=== PATIENT | female | born 1950 | race Caucasian/White ===

== ENCOUNTER 2018-03-17 15:35 | Emergency (ER) | payer OTHER ==
[~2018-03-17] VITALS: Ht 154.9 cm; Wt 78.0 kg
[2018-03-17 15:36] VITALS: BP 159/60
[2018-03-17] MEDS ORDERED: KETOROLAC TROMETH 60MG/2ML VIAL IM ONE (16:30)
== END 2018-03-17 17:06 | disposition home or self-care (01) ==
LOC: ER 15:35
DX: S40.011A Contusion of right shoulder, initial encounter (principal); I10 Essential (primary) hypertension; Z88.2 Allergy status to sulfonamides; W18.30XA Fall on same level, unspecified, initial encounter; Y93.89 Activity, other specified; Y99.8 Other external cause status; Y92.89 Other specified places as the place of occurrence of the external cause
CPT/HCPCS: 73030; 73060; 96372; 99284; J1885

== ENCOUNTER 2018-04-11 10:05 | Emergency (ER) | payer OTHER ==
[~2018-04-11] VITALS: Ht 154.9 cm; Wt 79.4 kg
[2018-04-11 10:13] VITALS: BP 127/54
[2018-04-11] MEDS ORDERED: DEXAMETHASONE SOD PHOS 10MG/1ML VIAL INJ IM ONE (12:45)
[2018-04-11] MEDS ORDERED: KETOROLAC TROMETH 60MG/2ML VIAL IM ONE (12:45)
== END 2018-04-11 13:27 | disposition home or self-care (01) ==
LOC: ER 10:05
DX: S49.91XA Unspecified injury of right shoulder and upper arm, initial encounter (principal); Z88.2 Allergy status to sulfonamides; W19.XXXA Unspecified fall, initial encounter; Y93.89 Activity, other specified; Y92.89 Other specified places as the place of occurrence of the external cause; Y99.8 Other external cause status
CPT/HCPCS: 73030; 73060; 73090; 73130; 96372; 99284; J1100; J1885

== ENCOUNTER 2019-06-03 11:55 | Emergency (ER) | payer OTHER ==
[~2019-06-03] VITALS: Ht 152.4 cm; Wt 77.1 kg
[~2019-06-03 11:55] MED LIST: AMLO10TA13 PO; ASPI-498; ATEN50TA; CITA-73; LEVO175T31; LISI-646; METF-370; MULTTAB99 PO
[2019-06-03] MEDS ORDERED: SODIUM CHLORIDE 0.9% 1,000 ML IV ONE (12:25)
[2019-06-03] MEDS ORDERED: KETOROLAC TROMETH 30 MG/ML 1ML VIAL IV ONE (12:30)
[2019-06-03] MEDS ORDERED: PROMETHAZINE HCL 25 MG/ML 1ML IV PRN (12:30)
[2019-06-03 12:35] LABS: Basophils # (auto) 0 uL; Basophils % (auto) 0.6 % (0.0-2.0); Eosinophils # (auto) 0.4 uL; Eosinophils % (auto) 4.2 % (0.0-7.0); Hematocrit 40.1 % (36.0-46.0); Hemoglobin 13.7 g/dL (12.2-16.2); Lymphocytes # (auto) 3.2 uL; Lymphocytes % (auto) 38.8 % (10.0-50.0); Mean Corpuscular Hemoglobin 29.2 pg (28.0-32.0); Mean Corpuscular Hgb Conc. 34.1 g/dL (32.0-36.0); Mean Corpuscular Volume 85.6 fL (80.0-100.0); Monocytes # (auto) 0.6 uL; Monocytes % (auto) 6.8 % (0.0-12.0); Neutrophils # (auto) 4.1 uL; Neutrophils % (auto) 49.6 % (37.0-80.0); Nucleated Red Blood Cells % 0.1 %; Platelet Count (auto) 351 10^3/uL (140-450); Red Blood Cells 4.69 10^6/uL (4.0-5.20); Red Cell Distribution Width 13.4 % (11.8-14.3); White Blood Cell 8.4 10^3/uL (4.4-10.8)
[2019-06-03 12:47] LABS: Urine Bacteria NONE SEEN /hpf (None Seen); Urine Blood Negative /uL (Negative); Urine Specific Gravity 1.014 (1.001-1.035); Urine WBC 2 /hpf (0 - 5)
[2019-06-03 12:48] VITALS: BP 137/43
[2019-06-03 12:48] LABS: Calcium 9.1 mg/dL (8.5-10.1); Potassium 4.6 mmol/L (3.5-5.1)
[2019-06-03 12:55] LABS: Albumin 3.8 g/dL (3.4-5.0); BUN/Creatinine Ratio 18.7; Bilirubin, Total 0.6 mg/dL (0.2-1.0); Total Protein 7.4 g/dL (6.4-8.2)
== END 2019-06-03 15:30 | disposition home or self-care (01) ==
LOC: ER 12:09
DX: N39.0 Urinary tract infection, site not specified (principal); K44.9 Diaphragmatic hernia without obstruction or gangrene; K42.9 Umbilical hernia without obstruction or gangrene; E05.90 Thyrotoxicosis, unspecified without thyrotoxic crisis or storm; E78.5 Hyperlipidemia, unspecified; I10 Essential (primary) hypertension; Z98.51 Tubal ligation status; Z86.73 Personal history of transient ischemic attack (TIA), and cerebral infarction without residual deficits; Z88.2 Allergy status to sulfonamides
CPT/HCPCS: 36415; 71046; 74176; 80053; 81001; 83690; 83735; 84443; 85025; 93005; 96374; 96375; 99284; J1885; J2550; J7030

== ENCOUNTER → 2019-11-09 | Emergency (ER) | payer OTHER ==
[~2019-11-09] VITALS: Ht 152.4 cm; Wt 79.4 kg
[~2019-11-09] MED LIST changes: -AMLO10TA13 PO; -ASPI-498; -ATEN50TA; +ATEN50TA PO; -CITA-73; +CITA-73 PO; +HYDR-531 PO; +LEVO150T10 PO; -LEVO175T31; -LISI-646; +LISI-646 PO; -METF-370; +OMEP20TA PO
[2019-11-09 14:19] VITALS: BP 146/54
[2019-11-09 14:32] LABS: Urine Bacteria NONE SEEN /hpf (None Seen); Urine Blood Negative /uL (Negative); Urine Specific Gravity 1.014 (1.001-1.035); Urine WBC <1 /hpf (0 - 5)
== END | disposition home or self-care (01) ==
LOC: ER 14:10
DX: M54.16 Radiculopathy, lumbar region (principal); R51 Headache; I10 Essential (primary) hypertension; E11.9 Type 2 diabetes mellitus without complications; E78.5 Hyperlipidemia, unspecified; K21.9 Gastro-esophageal reflux disease without esophagitis; Z86.73 Personal history of transient ischemic attack (TIA), and cerebral infarction without residual deficits; Z79.899 Other long term (current) drug therapy; Z88.2 Allergy status to sulfonamides
CPT/HCPCS: 81001

== ENCOUNTER 2020-05-05 09:12 | Emergency (ER) | payer OTHER ==
[~2020-05-05] VITALS: Ht 154.9 cm; Wt 83.5 kg
[2020-05-05 12:52] VITALS: BP 172/66
== END 2020-05-05 14:27 | disposition home or self-care (01) ==
LOC: ER 09:12
DX: U07.1 COVID-19 (principal); J18.9 Pneumonia, unspecified organism
CPT/HCPCS: 36415; 71045; 87426

== ENCOUNTER 2020-05-14 15:50 | Emergency (ER) | payer OTHER ==
[~2020-05-14] VITALS: Ht 165.1 cm; Wt 81.6 kg
[2020-05-14 16:08] VITALS: BP 146/79
[2020-05-14] MEDS ORDERED: DOXYCYCLINE 100MG/250ML 250 ML IV ONE (16:30)
== END 2020-05-14 16:49 | disposition home or self-care (01) ==
LOC: EDUNIT# 15:50 → EDBD 15:50 → ER 15:52
DX: U07.1 COVID-19 (principal); J12.89 Other viral pneumonia; E11.9 Type 2 diabetes mellitus without complications; K21.9 Gastro-esophageal reflux disease without esophagitis; E78.5 Hyperlipidemia, unspecified; I10 Essential (primary) hypertension; Z98.51 Tubal ligation status; Z86.73 Personal history of transient ischemic attack (TIA), and cerebral infarction without residual deficits

== ENCOUNTER 2020-05-18 11:36 | Inpatient (IN) | payer OTHER ==
[~2020-05-18] VITALS: Ht 165.1 cm; Wt 83.1 kg
[2020-05-18] MEDS ORDERED: SODIUM CHLORIDE 0.9% 1,000 ML IVB ONE (12:30)
[2020-05-18 14:26] LABS: Basophils # (auto) 0.1 10 ^3/uL (0-0.2); Basophils % (auto) 0.3 % (0.0-2.0); Eosinophils # (auto) 0.4 10 ^3/uL (0-0.8); Eosinophils % (auto) 1.8 % (0.0-7.0); Hematocrit 42.5 % (36.0-46.0); Hemoglobin 14.2 g/dL (12.2-16.2); Lymphocytes # (auto) 2.1 10 ^3/uL (0.4-5.4); Lymphocytes % (auto) 10.5 % (10.0-50.0); Mean Corpuscular Hemoglobin 29.3 pg (28.0-32.0); Mean Corpuscular Hgb Conc. 33.4 g/dL (32.0-36.0); Mean Corpuscular Volume 87.5 fL (80.0-100.0); Monocytes # (auto) 1.5 10 ^3/uL (0-1.3); Monocytes % (auto) 7.3 % (0.0-12.0); Neutrophils # (auto) 16.3 10 ^3/uL (1.6-8.6); Neutrophils % (auto) 80.1 % (37.0-80.0); Nucleated Red Blood Cells % 0.1 %; Platelet Count (auto) 376 10^3/uL (140-450); Red Blood Cells 4.85 10^6/uL (4.0-5.20); Red Cell Distribution Width 13.7 % (11.8-14.3); White Blood Cell 20.4 10^3/uL (4.4-10.8)
[2020-05-18 14:42] LABS: INR 0.95 (0.9-1.15); Partial Thromboplastin Time 21.9 sec (23.0-31.2)
[2020-05-18] MEDS ORDERED: ZINC SULFATE 220mg CAP or TAB PO ONE (14:45)
[2020-05-18] MEDS ORDERED: ASCORBIC ACID 500 MG TAB PO ONE (14:45)
[2020-05-18] MEDS ORDERED: AZITHROMYCIN 500MG/ 250ML 250 ML IV ONE (14:45)
[2020-05-18] MEDS ORDERED: DexAMETHasone 4 MG TAB PO ONE (14:45)
[2020-05-18 14:54] LABS: Albumin 2.7 g/dL (3.4-5.0); Anion Gap 5 (5-15); Blood Urea Nitrogen 17 mg/dL (7-18); Calcium 8.8 mg/dL (8.5-10.1); Carbon Dioxide 29 mmol/L (21-32); Chloride 101 mmol/L (98-107); Glucose 116 mg/dL (74-106); Magnesium 2.4 mg/dL (1.6-2.6); Potassium 4.4 mmol/L (3.5-5.1); Sodium 135 mmol/L (136-145)
[2020-05-18 15:09] LABS: Alanine Aminotransferase 25 U/L (13-56); Alkaline Phosphatase 107 U/L (45-117); Aspartate Aminotransferase 21 U/L (15-37); BUN/Creatinine Ratio 25.4; Bilirubin, Total 0.8 mg/dL (0.2-1.0); GFR African American 113 mL/min; GFR Non-African American 93 mL/min; Total Protein 6.9 g/dL (6.4-8.2)
[2020-05-18] MEDS ORDERED: MORPHINE SULF INJ 2 MG/ML SYRINGE 1ML IV PRN ×3 (18:15→19:15)
[2020-05-18] MEDS ORDERED: NITROGLYCERIN 0.4 MG SL TAB SL PRN ×2 (18:15→19:15)
[2020-05-18] MEDS ORDERED: DOCUSATE SOD 100 MG CAP PO PRN (19:15)
[2020-05-18] MEDS ORDERED: ACETAMINOPHEN 500 MG TAB PO PRN (19:15)
[2020-05-18] MEDS ORDERED: ENOXAPARIN SOD 100 MG/1 ML SYRINGE SC ONE (19:15)
[2020-05-18] MEDS ORDERED: LORazepam 0.5 MG TAB PO PRN (19:15)
[2020-05-18] MEDS ORDERED: ALUM & MAG HYDROX-SIMETH LIQ(MAALOX) 30 ML PO PRN (19:15)
[2020-05-18] MEDS ORDERED: VANCOMYCIN PER PHARMACY 0 MG IV SCH (19:15)
[2020-05-18] MEDS ORDERED: REMDESIVIR PER PHARMACY IV SCH (19:15)
[2020-05-18] MEDS ORDERED: ONDANSETRON HCL 4 MG/2 ML VIAL IV PRN (19:15)
[2020-05-18] MEDS ORDERED: ALBUTEROL SULF HFA 90MCG INH 200DOSE IN SCH (22:00)
[2020-05-18] MEDS: BUDESONIDE (INHALATION) 180 MCG IH IN SCH (22:00)
[2020-05-18] MEDS ORDERED: PIPERACILLIN-TAZOB 3.375GM 100 ML IV ONE (22:00)
[2020-05-18 23:51] LABS: Basophils # (auto) 0 10 ^3/uL (0-0.2); Basophils % (auto) 0.3 % (0.0-2.0); Eosinophils # (auto) 0.3 10 ^3/uL (0-0.8); Eosinophils % (auto) 2.1 % (0.0-7.0); Hematocrit 40.8 % (36.0-46.0); Hemoglobin 13.4 g/dL (12.2-16.2); Lymphocytes # (auto) 2.1 10 ^3/uL (0.4-5.4); Lymphocytes % (auto) 16.7 % (10.0-50.0); Monocytes # (auto) 1.1 10 ^3/uL (0-1.3); Monocytes % (auto) 8.9 % (0.0-12.0); Neutrophils # (auto) 9.2 10 ^3/uL (1.6-8.6); Platelet Count (auto) 343 10^3/uL (140-450); Red Blood Cells 4.63 10^6/uL (4.0-5.20); Red Cell Distribution Width 13.6 % (11.8-14.3); White Blood Cell 12.8 10^3/uL (4.4-10.8)
[2020-05-19 00:20] LABS: Albumin 2.6 g/dL (3.4-5.0); Calcium 8.8 mg/dL (8.5-10.1); Magnesium 2.1 mg/dL (1.6-2.6); Potassium 4.5 mmol/L (3.5-5.1)
[2020-05-19 00:23] LABS: BUN/Creatinine Ratio 24.1
[2020-05-19 00:25] LABS: Bilirubin, Total 0.8 mg/dL (0.2-1.0); Total Protein 6.7 g/dL (6.4-8.2)
[2020-05-19] MEDS: FAMOTIDINE (10MG/ML) 2ML VL IV SCH ×2 (00:52→23:09)
[2020-05-19] MEDS: ATORVASTATIN 20 MG TAB PO SCH ×2 (00:52→23:10)
[2020-05-19] MEDS: ENOXAPARIN SOD 100 MG/1 ML SYRINGE SC SCH ×3 (00:52→23:10)
[2020-05-19] MEDS: HYDROcodone-ACET 5/325MG TAB PO PRN ×4 (01:10→23:11)
[2020-05-19 01:24] LABS: CRP High Sensitivity 5.1 mg/dL (< 0.3)
[2020-05-19 01:37] LABS: Cholesterol 213 mg/dL (< 200); HDL Cholesterol 39 mg/dL (40-59); LDL Cholesterol 161 mg/dL (< 100); Triglycerides 171 mg/dL (< 150)
[2020-05-19] MEDS: VANCOMYCIN 1GM/250ML 250 ML IV SCH ×2 (02:09→18:30)
[2020-05-19 02:19] VITALS: BP 134/69
--- NOTE | 2020-05-19 03:54 | NUR ---
RN NOT AVAILABLE, UNABLE TO CLARIFY IF PT WAS SWABBED FOR COVID. NOTIFIED .S YESY
[2020-05-19 05:00] VITALS: BP 123/60
[2020-05-19] MEDS: LEVOTHYROXINE SODIUM 50 MCG TAB PO SCH (06:02)
[2020-05-19] MEDS: FUROSEMIDE 20 MG/2 ML VIAL IV SCH ×2 (06:04→18:30)
[2020-05-19 06:09] LABS: Basophils # (auto) 0 10 ^3/uL (0-0.2); Basophils % (auto) 0.1 % (0.0-2.0); Eosinophils # (auto) 0 10 ^3/uL (0-0.8); Eosinophils % (auto) 0.3 % (0.0-7.0); Hematocrit 38.9 % (36.0-46.0); Hemoglobin 13.1 g/dL (12.2-16.2); Lymphocytes # (auto) 1.2 10 ^3/uL (0.4-5.4); Lymphocytes % (auto) 11.3 % (10.0-50.0); Mean Corpuscular Hemoglobin 29.6 pg (28.0-32.0); Mean Corpuscular Hgb Conc. 33.7 g/dL (32.0-36.0); Mean Corpuscular Volume 87.8 fL (80.0-100.0); Monocytes # (auto) 0.2 10 ^3/uL (0-1.3); Monocytes % (auto) 2.3 % (0.0-12.0); Platelet Count (auto) 323 10^3/uL (140-450); Red Blood Cells 4.43 10^6/uL (4.0-5.20); Red Cell Distribution Width 13.5 % (11.8-14.3); White Blood Cell 10.5 10^3/uL (4.4-10.8)
[2020-05-19 06:14] LABS: Potassium 4.4 mmol/L (3.5-5.1)
[2020-05-19 06:23] LABS: Albumin 2.5 g/dL (3.4-5.0); BUN/Creatinine Ratio 17.3; Bilirubin, Total 0.7 mg/dL (0.2-1.0); Calcium 8.7 mg/dL (8.5-10.1); Total Protein 6.3 g/dL (6.4-8.2)
--- NOTE | 2020-05-19 07:30 | NUR ---
Opening Shift Note Assumed care of patient, who is alert and oriented x4. Respirations are even and unlabored. No S/S of distress/SOB or pain. On 5L O2 nc. Bed is low, locked with 2x side rails up. Call light is within reach. Instructed on POC and to call for assist PRN, will continue to monitor for changes Q1hr and PRN.
[2020-05-19] MEDS: ASCORBIC ACID 1,000 MG TAB PO SCH (09:49)
[2020-05-19] MEDS: DexAMETHasone SOD PHOS 10MG/1ML VIAL INJ IV SCH (09:49)
[2020-05-19] MEDS: CITALOPRAM HYDROBR 20 MG TAB PO SCH (09:50)
[2020-05-19] MEDS: METOPROLOL SUCCINATE XL 50 MG TAB PO SCH (09:50)
[2020-05-19] MEDS: LISINOPRIL 5 MG TAB PO SCH (09:50)
[2020-05-19] MEDS: CHOLECALCIFEROL (VITD3) 2,000 UNIT CAP PO SCH (09:51)
[2020-05-19] MEDS: ZINC SULFATE 220mg CAP or TAB PO SCH (09:51)
[2020-05-19] MEDS: BUDESONIDE (INHALATION) 180 MCG IH IN SCH ×2 (10:00→22:00)
--- NOTE | 2020-05-19 10:03 | NUR ---
Urine sample Collected and sent to lab for ordered UA/culture and UDS.
[2020-05-19 10:05] LABS: Urine WBC None Seen /hpf (0 - 5)
[2020-05-19 10:21] LABS: Urine Bacteria NONE SEEN /hpf (None Seen); Urine Blood Negative /uL (Negative); Urine Specific Gravity 1.008 (1.001-1.035)
[2020-05-19 10:33] LABS: Alcohol, Urine < 3.0 mg/dL (0-10); Amphetamine Screen, Urine NEGATIVE (NEGATIVE); Barbiturate Scree,Urine NEGATIVE (NEGATIVE); Benzodiazephine Screen, Urine NEGATIVE (NEGATIVE); Cannabinoid Screen, Urine NEGATIVE (NEGATIVE); Cocaine Screen, Urine NEGATIVE (NEGATIVE); Opiate Scree,Urine NEGATIVE (NEGATIVE); Phencyclidine Screen, Urine NEGATIVE (NEGATIVE)
[2020-05-19 12:45] VITALS: BP 143/77
[2020-05-19 16:56] VITALS: BP 129/58
[2020-05-19] MEDS ORDERED: REMDESIVIR 200 MG in NS 210ml LOADING DOSE ADULT IV ONE (17:00)
--- NOTE | 2020-05-19 17:20 | NUR ---
FLU A/B Sent to lab by this RN.
--- NOTE | 2020-05-19 18:20 | NUR ---
Remdesivir Pre: T: 97.8 HR:93bpm, RR:20bpm, O2:94% T: 97.7 HR:74bpm, RR:16, O2:92% Post: T:98.0 HR:84bpm, RR:12bpm, O2:91%
[2020-05-19] MEDS: ACETAMINOPHEN 325 MG TAB PO PRN (18:31)
--- NOTE | 2020-05-19 19:00 | NUR ---
Opening Shift Note Assumed care of patient, awake and alert. No S/S of distress/SOB or pain. Patient on 5L O2 via NC. Safety measures in place bed in lowest position, side rails up x2, and call light within reach. Instructed on POC and to call for assist PRN, will continue to monitor for changes Q1hr and PRN.
[2020-05-19 22:00] VITALS: BP_SYST 118; BP_SYST 136; BP_DIAS 67; BP_DIAS 70
[2020-05-20] VITALS (8 sets, daily range): BP systolic 128–140; BP diastolic 50–80
[2020-05-20] MEDS: PIPERACILLIN-TAZOB 3.375GM 100 ML IV SCH ×4 (04:13→23:06)
[2020-05-20] MEDS: LEVOTHYROXINE SODIUM 50 MCG TAB PO SCH (06:36)
[2020-05-20] MEDS: FUROSEMIDE 20 MG/2 ML VIAL IV SCH ×2 (06:36→18:20)
[2020-05-20] MEDS: BUDESONIDE (INHALATION) 180 MCG IH IN SCH ×2 (07:00→22:56)
[2020-05-20] MEDS: ALBUTEROL SULF HFA 90MCG INH 200DOSE IN PRN (07:00)
[2020-05-20] MEDS: ZINC SULFATE 220mg CAP or TAB PO SCH (10:00)
[2020-05-20] MEDS: VANCOMYCIN 1GM/250ML 250 ML IV SCH (11:15)
[2020-05-20] MEDS: DexAMETHasone SOD PHOS 10MG/1ML VIAL INJ IV SCH (11:26)
[2020-05-20] MEDS: ENOXAPARIN SOD 100 MG/1 ML SYRINGE SC SCH ×2 (11:28→23:07)
[2020-05-20] MEDS: CITALOPRAM HYDROBR 20 MG TAB PO SCH (11:29)
[2020-05-20] MEDS: ASCORBIC ACID 1,000 MG TAB PO SCH (11:29)
[2020-05-20] MEDS: METOPROLOL SUCCINATE XL 50 MG TAB PO SCH (11:30)
[2020-05-20] MEDS: CHOLECALCIFEROL (VITD3) 2,000 UNIT CAP PO SCH (11:31)
[2020-05-20] MEDS: LISINOPRIL 5 MG TAB PO SCH (11:31)
[2020-05-20] MEDS: HYDROcodone-ACET 5/325MG TAB PO PRN ×2 (17:18→23:25)
[2020-05-20] MEDS: REMDESIVIR 100 MG in SODIUM CHL 0.9% 250 ML IV SCH (17:24)
--- NOTE | 2020-05-20 17:30 | NUR ---
Started Remdesivir per MD order at this time. Patient tolerating well at this time. Will continue to monitor.
--- NOTE | 2020-05-20 18:34 | NUR ---
REMDESIVIR COMPLETED W/O ADVERSE REACTION. VS REMAIN STABLE
--- NOTE | 2020-05-20 20:55 | NUR ---
Opening Shift Note Assumed care of patient, awake and alert. No S/S of distress/SOB or pain. Patient safety measures in place bed in lowest position, side rails up x2, and call light within reach. Instructed on POC and to call for assist PRN, will continue to monitor for changes Q1hr and PRN.
--- NOTE | 2020-05-20 20:57 | NUR ---
Patient's family dropped off snacks and herbal night time tea for the patient. Verified with pharmacy that the herbal teas would not interact with any medications. Pharmacy states the tea can be given.
[2020-05-20] MEDS: FAMOTIDINE (10MG/ML) 2ML VL IV SCH (23:06)
[2020-05-20] MEDS: ATORVASTATIN 20 MG TAB PO SCH (23:07)
[2020-05-21] MEDS: ALBUTEROL SULF HFA 90MCG INH 200DOSE IN PRN ×3 (01:14→20:23)
[2020-05-21] MEDS: VANCOMYCIN 1GM/250ML 250 ML IV SCH ×2 (03:08→16:26)
[2020-05-21] MEDS: PIPERACILLIN-TAZOB 3.375GM 100 ML IV SCH ×4 (04:33→23:57)
[2020-05-21 05:18] VITALS: BP 152/72
[2020-05-21] MEDS: FUROSEMIDE 20 MG/2 ML VIAL IV SCH ×2 (05:51→18:00)
[2020-05-21] MEDS: LEVOTHYROXINE SODIUM 50 MCG TAB PO SCH (06:15)
[2020-05-21] MEDS: BUDESONIDE (INHALATION) 180 MCG IH IN SCH ×2 (07:02→20:23)
[2020-05-21 08:00] VITALS: BP 135/64
[2020-05-21] MEDS ORDERED: LINEZOLID 600 MG/300 ML IV ONE (10:52)
[2020-05-21] MEDS: HYDROcodone-ACET 5/325MG TAB PO PRN ×2 (10:55→21:06)
[2020-05-21] MEDS: CITALOPRAM HYDROBR 20 MG TAB PO SCH (10:55)
[2020-05-21] MEDS: ASCORBIC ACID 1,000 MG TAB PO SCH (10:55)
[2020-05-21] MEDS: ZINC SULFATE 220mg CAP or TAB PO SCH (10:55)
[2020-05-21] MEDS: METOPROLOL SUCCINATE XL 50 MG TAB PO SCH (10:56)
[2020-05-21] MEDS: LISINOPRIL 5 MG TAB PO SCH (10:57)
[2020-05-21] MEDS: CHOLECALCIFEROL (VITD3) 2,000 UNIT CAP PO SCH (10:59)
[2020-05-21] MEDS: ENOXAPARIN SOD 100 MG/1 ML SYRINGE SC SCH ×2 (11:09→22:55)
[2020-05-21] MEDS: DexAMETHasone SOD PHOS 10MG/1ML VIAL INJ IV SCH (11:12)
[2020-05-21 12:00] VITALS: BP 154/71
--- NOTE | 2020-05-21 19:10 | NUR ---
Opening Shift Note Assumed care of patient, awake and alert. No S/S of distress/SOB or pain. Patient safety measures in place side rails up x2, bed in lowest position, and call light within reach. Instructed on POC and to call for assist PRN, will continue to monitor for changes Q1hr and PRN.
--- NOTE | 2020-05-21 19:45 | NUR ---
Spoke to pharmacy to adjust patient's medication administration. Will continue to monitor.
[2020-05-21] MEDS: REMDESIVIR 100 MG in SODIUM CHL 0.9% 250 ML IV SCH (21:33)
--- NOTE | 2020-05-21 21:33 | NUR ---
Patient's Remdesivir adminstration delayed by dayshift RN. Adminstration started 2129. Patient's BP 110/78, HR 86, O2 92%, Temp 97.7, RR 17. Will reassess at 2144. Will continue to monitor every hour and as needed.
--- NOTE | 2020-05-21 21:45 | NUR ---
Vitals reassessed T 98.5, BP 133/72, HR 90, O2 91%, RR. 17. Will continue to monitor every hour and as needed.
[2020-05-21 22:00] VITALS: BP 110/78
[2020-05-21] MEDS: FAMOTIDINE (10MG/ML) 2ML VL IV SCH (22:54)
--- NOTE | 2020-05-21 23:12 | NUR ---
Remdesivir administration complete ending vitals T 98.3, O2 93%, HR 73, RR 17, BP 133/65. Patient denies pain or distress. Patient tolerated administration well. Will continue to monitor every hour and as needed.
[2020-05-21] MEDS: ATORVASTATIN 20 MG TAB PO SCH (23:15)
[2020-05-22] MEDS: VANCOMYCIN 1GM/250ML 250 ML IV SCH ×2 (03:00→15:50)
[2020-05-22 05:00] VITALS: BP 159/71
[2020-05-22 05:55] LABS: Basophils # (auto) 0 10 ^3/uL (0-0.2); Basophils % (auto) 0.2 % (0.0-2.0); Eosinophils # (auto) 0 10 ^3/uL (0-0.8); Hematocrit 34.9 % (36.0-46.0); Hemoglobin 11.8 g/dL (12.2-16.2); Lymphocytes # (auto) 2.1 10 ^3/uL (0.4-5.4); Lymphocytes % (auto) 20.1 % (10.0-50.0); Mean Corpuscular Hemoglobin 29.5 pg (28.0-32.0); Mean Corpuscular Hgb Conc. 33.9 g/dL (32.0-36.0); Mean Corpuscular Volume 87.1 fL (80.0-100.0); Monocytes % (auto) 9.6 % (0.0-12.0); Neutrophils # (auto) 7.2 10 ^3/uL (1.6-8.6); Neutrophils % (auto) 70.1 % (37.0-80.0); Platelet Count (auto) 340 10^3/uL (140-450); Red Blood Cells 4.01 10^6/uL (4.0-5.20); Red Cell Distribution Width 13.5 % (11.8-14.3); White Blood Cell 10.3 10^3/uL (4.4-10.8)
[2020-05-22] MEDS: PIPERACILLIN-TAZOB 3.375GM 100 ML IV SCH ×4 (06:09→23:38)
[2020-05-22] MEDS: FUROSEMIDE 20 MG/2 ML VIAL IV SCH ×2 (06:09→15:50)
[2020-05-22 06:16] LABS: Potassium 4.2 mmol/L (3.5-5.1)
[2020-05-22] MEDS: LEVOTHYROXINE SODIUM 50 MCG TAB PO SCH (06:16)
[2020-05-22 06:23] LABS: Albumin 2.4 g/dL (3.4-5.0); BUN/Creatinine Ratio 23.5; Bilirubin, Total 0.4 mg/dL (0.2-1.0); Calcium 8.7 mg/dL (8.5-10.1); Total Protein 5.6 g/dL (6.4-8.2)
[2020-05-22] MEDS: BUDESONIDE (INHALATION) 180 MCG IH IN SCH ×2 (07:20→19:58)
[2020-05-22 09:00] VITALS: BP 146/71
[2020-05-22] MEDS: DexAMETHasone SOD PHOS 10MG/1ML VIAL INJ IV SCH (10:00)
[2020-05-22] MEDS: CITALOPRAM HYDROBR 20 MG TAB PO SCH (10:46)
[2020-05-22] MEDS: METOPROLOL SUCCINATE XL 50 MG TAB PO SCH (10:47)
[2020-05-22] MEDS: CHOLECALCIFEROL (VITD3) 2,000 UNIT CAP PO SCH (10:48)
[2020-05-22] MEDS: ASCORBIC ACID 1,000 MG TAB PO SCH (10:48)
[2020-05-22] MEDS: LISINOPRIL 5 MG TAB PO SCH (10:49)
[2020-05-22] MEDS: ENOXAPARIN SOD 100 MG/1 ML SYRINGE SC SCH ×2 (10:49→21:32)
[2020-05-22] MEDS: ZINC SULFATE 220mg CAP or TAB PO SCH (10:50)
--- NOTE | 2020-05-22 12:20 | NUR ---
Nutrition Assessment Notes please see attached link for complete assessment Est energy needs ABW 70 [id number] kcal (23-25 kcal/kgABW), Est protein needs: 70-77 g (1.0-1.1g/kgABW). Will monitor and reassess prn. Addendum: 05/22/20 at [address] Amended: Links added.
[2020-05-22 13:00] VITALS: BP 152/72
--- NOTE | 2020-05-22 13:45 | NUR ---
NOTIFIED PHARMACY TO SEND [facility] UNIT IS OUT.
[2020-05-22] MEDS: HYDROcodone-ACET 5/325MG TAB PO PRN ×2 (15:55→22:26)
[2020-05-22 17:00] VITALS: BP 132/62
[2020-05-22] MEDS: REMDESIVIR 100 MG in SODIUM CHL 0.9% 250 ML IV SCH (17:15)
--- NOTE | 2020-05-22 17:15 | NUR ---
REMDESIVIR START VITALS BP141/58 P 63 RR 18 T 98.7 97%
--- NOTE | 2020-05-22 17:30 | NUR ---
REMDESIVIR VITALS 15 MINUTES INTO INFUSION BP 136/60 P 88 RR16 T97.6 97% 5L OXYMIZER
--- NOTE | 2020-05-22 18:15 | NUR ---
POST INFUSION VITALS BP 136/60 P 77 RR18 T97.6 92 % ROOM AIR
[2020-05-22] MEDS: ALBUTEROL SULF HFA 90MCG INH 200DOSE IN PRN (19:59)
[2020-05-22] MEDS: ATORVASTATIN 20 MG TAB PO SCH (21:31)
[2020-05-22] MEDS: FAMOTIDINE (10MG/ML) 2ML VL IV SCH (21:31)
[2020-05-22 22:00] VITALS: BP 120/65
[2020-05-23] MEDS: ACETAMINOPHEN 325 MG TAB PO PRN (00:11)
[2020-05-23] MEDS: VANCOMYCIN 1GM/250ML 250 ML IV SCH ×2 (03:17→18:53)
[2020-05-23 05:00] VITALS: BP 116/61
[2020-05-23] MEDS: PIPERACILLIN-TAZOB 3.375GM 100 ML IV SCH ×4 (05:26→23:44)
[2020-05-23] MEDS: HYDROcodone-ACET 5/325MG TAB PO PRN ×4 (05:29→21:06)
[2020-05-23] MEDS: LEVOTHYROXINE SODIUM 50 MCG TAB PO SCH (06:44)
[2020-05-23] MEDS: FUROSEMIDE 20 MG/2 ML VIAL IV SCH ×2 (06:45→18:54)
[2020-05-23 07:39] LABS: Albumin 2.6 g/dL (3.4-5.0); Calcium 8.5 mg/dL (8.5-10.1); Potassium 3.2 mmol/L (3.5-5.1)
[2020-05-23 07:44] LABS: BUN/Creatinine Ratio 23.4; Bilirubin, Total 0.4 mg/dL (0.2-1.0); Total Protein 6.1 g/dL (6.4-8.2)
[2020-05-23] MEDS: BUDESONIDE (INHALATION) 180 MCG IH IN SCH ×2 (07:46→19:25)
[2020-05-23 08:00] VITALS: BP 118/64
--- NOTE | 2020-05-23 08:00 | NUR ---
Opening Shift Note Assumed care of patient, awake and alert. oxygen saturation 94% on 4 liters nasal cannula.No S/S of distress/SOB or pain. Patient safety measures in place side rails up x2, bed in lowest position, and call light within reach. Instructed on POC and to call for assist PRN, will continue to monitor for changes Q1hr and PRN.
[2020-05-23] MEDS: DexAMETHasone SOD PHOS 10MG/1ML VIAL INJ IV SCH (09:37)
[2020-05-23] MEDS: CITALOPRAM HYDROBR 20 MG TAB PO SCH (09:38)
[2020-05-23] MEDS: ZINC SULFATE 220mg CAP or TAB PO SCH (09:38)
[2020-05-23] MEDS: METOPROLOL SUCCINATE XL 50 MG TAB PO SCH (09:40)
[2020-05-23] MEDS: ASCORBIC ACID 1,000 MG TAB PO SCH (09:40)
[2020-05-23] MEDS: CHOLECALCIFEROL (VITD3) 2,000 UNIT CAP PO SCH (09:41)
[2020-05-23] MEDS: LISINOPRIL 5 MG TAB PO SCH (09:42)
[2020-05-23] MEDS: ENOXAPARIN SOD 100 MG/1 ML SYRINGE SC SCH ×2 (09:42→21:05)
[2020-05-23 12:00] VITALS: BP 122/61
--- NOTE | 2020-05-23 12:30 | NUR ---
O2 SATURATION MAINTAINED AT 93% ON 3L NASAL CANNULA.WILL CONTIUE TO MONITOR.
--- NOTE | 2020-05-23 14:00 | NUR ---
paged dr bryan for dr jerad sandy regarding transfer of service.
--- NOTE | 2020-05-23 14:56 | NUR ---
TRANSFERRED SERVICE TO DR Yocasta SEN.
[2020-05-23 17:00] VITALS: BP 105/68
[2020-05-23] MEDS ORDERED: DOXY-332 PO (17:55)
[2020-05-23] MEDS ORDERED: ALBUAER3 IN (17:55)
[2020-05-23] MEDS ORDERED: DEXA6TAB6 PO (17:55)
[2020-05-23] MEDS ORDERED: IPRIH IN (17:55)
[2020-05-23] MEDS: REMDESIVIR 100 MG in SODIUM CHL 0.9% 250 ML IV SCH (18:45)
--- NOTE | 2020-05-23 19:01 | NUR ---
endorsed care to night rn. patient will go home tomorrow 05/24/20. per pulmonary md patient will go home tomorrow.
--- NOTE | 2020-05-23 19:20 | NUR ---
Opening note Assumed care of patient, patient is alert and orientated x4. No sob or distress noted. Patient is resting in bed. Bed is locked in lowest position, side rails up x2. POC reviewed, all questions answered at this time. Will continue to monitor q1hr and PRN.
[2020-05-23] MEDS: ALBUTEROL SULF HFA 90MCG INH 200DOSE IN PRN (19:25)
[2020-05-23] MEDS: FAMOTIDINE (10MG/ML) 2ML VL IV SCH (21:05)
[2020-05-23] MEDS: ATORVASTATIN 20 MG TAB PO SCH (21:05)
[2020-05-23 22:00] VITALS: BP 102/46
[2020-05-24] MEDS: VANCOMYCIN 1GM/250ML 250 ML IV SCH (03:12)
[2020-05-24 05:41] VITALS: BP_SYST 72
[2020-05-24] MEDS: FUROSEMIDE 20 MG/2 ML VIAL IV SCH (06:13)
[2020-05-24] MEDS: LEVOTHYROXINE SODIUM 50 MCG TAB PO SCH (06:13)
[2020-05-24] MEDS: PIPERACILLIN-TAZOB 3.375GM 100 ML IV SCH (06:13)
[2020-05-24] MEDS: HYDROcodone-ACET 5/325MG TAB PO PRN (06:14)
[2020-05-24] MEDS: BUDESONIDE (INHALATION) 180 MCG IH IN SCH (07:11)
[2020-05-24] MEDS: ALBUTEROL SULF HFA 90MCG INH 200DOSE IN PRN (07:11)
--- NOTE | 2020-05-24 07:17 | NUR ---
Closing note Endorsed care to day shift RN, no sob or distress noted.
--- NOTE | 2020-05-24 08:00 | NUR ---
ASSUMED CARE OF PATIENT PATIENT SCHEDULED TO DISCHARGE HOME TODAY. PULMONARY MD CLEARED PATIENT FOR DISCHARGE.
--- NOTE | 2020-05-24 08:30 | NUR ---
ITCHING SCALP PATIENT STATED "MY SCALP IS ITCHING". UPON ASSESSMENT PATIENT DOES HAVE TINY HOWEVER VISULA INSECTS CRAWLING THROUGHOUT HAIR LINE; DENIED PAIN OR ITCHING. MD PAGED FOR NEW ORDERS.
--- NOTE | 2020-05-24 09:00 | NUR ---
MD RETURNED CALL. NO NEW ORDERS. MD RECOMMENDED TO PATIENT TO PURCHASE OTC COUNTER HEAD LICE TREATMENT AND FOLLOW UP WITH PRIMARY MD.
[2020-05-24 09:27] VITALS: BP 136/71
[2020-05-24] MEDS: ASCORBIC ACID 1,000 MG TAB PO SCH (10:00)
[2020-05-24] MEDS: ZINC SULFATE 220mg CAP or TAB PO SCH (10:00)
[2020-05-24] MEDS: CITALOPRAM HYDROBR 20 MG TAB PO SCH (10:00)
[2020-05-24] MEDS: CHOLECALCIFEROL (VITD3) 2,000 UNIT CAP PO SCH (10:00)
[2020-05-24] MEDS: DexAMETHasone SOD PHOS 10MG/1ML VIAL INJ IV SCH (10:00)
[2020-05-24] MEDS: ENOXAPARIN SOD 100 MG/1 ML SYRINGE SC SCH (10:00)
[2020-05-24] MEDS: METOPROLOL SUCCINATE XL 50 MG TAB PO SCH (10:00)
[2020-05-24] MEDS: LISINOPRIL 5 MG TAB PO SCH (10:00)
--- NOTE | 2020-05-24 11:15 | NUR ---
Discharge instructions given as ordered. Encourage to follow up with PMD as instructed. All questions and concerns addressed. Patient verbalized understanding. IV removed with catheter intact, pressure dressing applied Telemetry unit returned to ICU. Patient taken to vehicle via wheelchair with all personal belongings, accompanied by staff and family member. No distress noted at time of departure.
== END 2020-05-24 11:00 | disposition home or self-care (01) | DRG 177 ==
LOC: EDBD 11:36 → ER 11:36 → OVERFLOW 18:09 → TELE-EAST 05-19 01:55
PROVIDERS: ADMIT Hospitalist; ATTEND Hospitalist
PROC: XW033E5 Introduction of Remdesivir Anti-infective into Peripheral Vein, Percutaneous Approach, New Technology Group 5 (ICD-10-PCS; principal; 2020-05-19)
DX: U07.1 COVID-19 (principal); J12.89 Other viral pneumonia; J96.21 Acute and chronic respiratory failure with hypoxia; E43 Unspecified severe protein-calorie malnutrition; E87.1 Hypo-osmolality and hyponatremia; E78.5 Hyperlipidemia, unspecified; I10 Essential (primary) hypertension; E03.9 Hypothyroidism, unspecified; E66.9 Obesity, unspecified; F03.90 Unspecified dementia, unspecified severity, without behavioral disturbance, psychotic disturbance, mood disturbance, and anxiety; K21.9 Gastro-esophageal reflux disease without esophagitis; B85.2 Pediculosis, unspecified; E11.9 Type 2 diabetes mellitus without complications; F32.9 Major depressive disorder, single episode, unspecified; F41.9 Anxiety disorder, unspecified; Z79.899 Other long term (current) drug therapy; Z68.30 Body mass index [BMI] 30.0-30.9, adult; Z88.2 Allergy status to sulfonamides; Z83.3 Family history of diabetes mellitus; Z82.49 Family history of ischemic heart disease and other diseases of the circulatory system
CPT/HCPCS: 36415; 36600; 71045; 80053; 80061; 80202; 80307; 81001; 82728; 82805; 83036; 83605; 83615; 83735; 84443; 84484; 85025; 85379; 85610; 85730; 86141; 87040; 87086; 87426; 87804; 93005; 94640; G0378; J1100; J2405; J2543; J3490

== ENCOUNTER 2020-09-27 18:20 | Emergency (ER) | payer OTHER ==
[~2020-09-27] VITALS: Ht 154.9 cm; Wt 81.2 kg
[~2020-09-27 18:20] MED LIST changes: +ALBUAER3 IN; +DEXA6TAB6 PO; +DOXY-332 PO; +IPRIH IN
[2020-09-27] MEDS ORDERED: MORPHINE SULF INJ 2 MG/ML SYRINGE 1ML IV PRN (19:30)
[2020-09-27 20:26] LABS: Basophils # (auto) 0.1 10 ^3/uL (0-0.2); Basophils % (auto) 0.8 % (0.0-2.0); Eosinophils # (auto) 0.8 10 ^3/uL (0-0.8); Eosinophils % (auto) 8.4 % (0.0-7.0); Hematocrit 36.4 % (36.0-46.0); Hemoglobin 12.2 g/dL (12.2-16.2); Lymphocytes # (auto) 3.6 10 ^3/uL (0.4-5.4); Mean Corpuscular Hemoglobin 29.1 pg (28.0-32.0); Mean Corpuscular Hgb Conc. 33.5 g/dL (32.0-36.0); Mean Corpuscular Volume 86.6 fL (80.0-100.0); Monocytes # (auto) 0.8 10 ^3/uL (0-1.3); Monocytes % (auto) 8.1 % (0.0-12.0); Neutrophils # (auto) 4.4 10 ^3/uL (1.6-8.6); Neutrophils % (auto) 45.7 % (37.0-80.0); Platelet Count (auto) 367 10^3/uL (140-450); Red Cell Distribution Width 13.2 % (11.8-14.3); White Blood Cell 9.6 10^3/uL (4.4-10.8)
[2020-09-27 20:40] LABS: Albumin 3.8 g/dL (3.4-5.0); Calcium 9.4 mg/dL (8.5-10.1); Potassium 4.3 mmol/L (3.5-5.1)
[2020-09-27 20:45] LABS: BUN/Creatinine Ratio 15.3; Bilirubin, Total 0.4 mg/dL (0.2-1.0); Total Protein 7.1 g/dL (6.4-8.2)
[2020-09-27 23:45] LABS: Urine Bacteria FEW /hpf (None Seen); Urine Blood Negative /uL (Negative); Urine Hyaline Cast FEW /lpf (0 - 2); Urine Specific Gravity 1.009 (1.001-1.035); Urine WBC 3 /hpf (0 - 5)
[2020-09-27] MEDS ORDERED: ONDANSETRON HCL 4 MG/2 ML VIAL IV ONE (23:45)
[2020-09-28] MEDS ORDERED: IOHEXOL 350 MG/ML 100ML IJ ONE (03:18)
[2020-09-28] MEDS ORDERED: HYDROcodone-ACET 5/325MG TAB PO ONE (03:45)
[2020-09-28 06:00] VITALS: BP 117/58
== END 2020-09-28 06:49 | disposition home or self-care (01) ==
LOC: ER 18:20
DX: K44.9 Diaphragmatic hernia without obstruction or gangrene (principal); R10.11 Right upper quadrant pain; F41.9 Anxiety disorder, unspecified; E11.9 Type 2 diabetes mellitus without complications; K21.9 Gastro-esophageal reflux disease without esophagitis; E78.5 Hyperlipidemia, unspecified; I10 Essential (primary) hypertension; Z98.51 Tubal ligation status; Z79.899 Other long term (current) drug therapy; Z88.2 Allergy status to sulfonamides
CPT/HCPCS: 36415; 71260; 74176; 74177; 76705; 80053; 81001; 83605; 83690; 85025; 93005; 96374; 96375; 99285; J2270; J2405; Q9967; 96361

== ENCOUNTER 2023-06-01 10:02 | Emergency (ER) | payer OTHER ==
[~2023-06-01] VITALS: Ht 154.9 cm; Wt 84.0 kg
[~2023-06-01 10:02] MED LIST changes: -DOXY-332 PO; +DOXY-448 PO; -LISI-646 PO; +LISI20TA56 PO
[2023-06-01 11:42] VITALS: BP 149/64; PULSE 82; RESP 18; TEMP 98.8; O2SAT 98
[2023-06-01] MEDS ORDERED: BENZ200C64 PO (12:16)
[2023-06-01] MEDS ORDERED: AZIT500T66 PO (12:16)
[2023-06-01] MEDS ORDERED: cefTRIAXone SOD 1,000 MG VL IM ONE (12:30)
== END 2023-06-01 12:34 | disposition home or self-care (01) ==
LOC: ER 10:02
DX: J20.9 Acute bronchitis, unspecified (principal); H66.92 Otitis media, unspecified, left ear; I10 Essential (primary) hypertension; E11.9 Type 2 diabetes mellitus without complications; K21.9 Gastro-esophageal reflux disease without esophagitis; E78.5 Hyperlipidemia, unspecified; F41.9 Anxiety disorder, unspecified; Z98.890 Other specified postprocedural states
CPT/HCPCS: 71046; 96372; 99283; J0696

== ENCOUNTER 2023-08-14 12:09 | Emergency (ER) | payer BC, OTHER ==
[~2023-08-14] VITALS: Ht 154.9 cm; Wt 84.9 kg
[~2023-08-14 12:09] MED LIST changes: +AZIT500T66 PO; +BENZ200C64 PO
[2023-08-14 13:25] LABS: Basophils # (auto) 0.1 10 ^3/uL (0-0.2); Basophils % (auto) 0.7 % (0.0-2.0); Eosinophils # (auto) 0.2 10 ^3/uL (0-0.8); Eosinophils % (auto) 3.2 % (0.0-7.0); Hematocrit 36.9 % (36.0-46.0); Hemoglobin 12.4 g/dL (12.2-16.2); Lymphocytes # (auto) 2.2 10 ^3/uL (0.4-5.4); Lymphocytes % (auto) 28.1 % (10.0-50.0); Mean Corpuscular Hemoglobin 29.7 pg (28.0-32.0); Mean Corpuscular Hgb Conc. 33.6 g/dL (32.0-36.0); Mean Corpuscular Volume 88.5 fL (80.0-100.0); Monocytes # (auto) 0.6 10 ^3/uL (0-1.3); Monocytes % (auto) 7.5 % (0.0-12.0); Neutrophils # (auto) 4.7 10 ^3/uL (1.6-8.6); Neutrophils % (auto) 60.5 % (37.0-80.0); Red Blood Cells 4.18 10^6/uL (4.0-5.20); Red Cell Distribution Width 14.2 % (11.8-14.3); White Blood Cell 7.7 10^3/uL (4.4-10.8)
[2023-08-14 13:42] LABS: Alanine Aminotransferase 28 U/L (7-40); Albumin 4.5 g/dL (3.2-4.8); Alkaline Phosphatase 98 U/L (46-116); Anion Gap 5 (5-15); Aspartate Aminotransferase 22 U/L (13-40); BUN/Creatinine Ratio 23.7 (10.0-20.0); Bilirubin, Direct 0.3 mg/dL (<0.3); Blood Urea Nitrogen 22 mg/dL (9-23); Calcium 10.2 mg/dL (8.5-10.1); Carbon Dioxide 30 mmol/L (20-30); Chloride 104 mmol/L (98-107); Glucose 98 mg/dL (74-106); Potassium 4.4 mmol/L (3.5-5.1); Sodium 139 mmol/L (136-145)
[2023-08-14 13:43] LABS: Bilirubin, Total 0.7 mg/dL (0.2-1.0); Total Protein 6.3 g/dL (5.7-8.2)
[2023-08-14 14:36] VITALS: BP 144/61; PULSE 69; RESP 16; TEMP 97.6; O2SAT 96
== END 2023-08-14 14:38 | disposition home or self-care (01) ==
LOC: ER 12:09
DX: R60.0 Localized edema (principal); I10 Essential (primary) hypertension; E11.9 Type 2 diabetes mellitus without complications; K21.9 Gastro-esophageal reflux disease without esophagitis; F41.9 Anxiety disorder, unspecified; E78.5 Hyperlipidemia, unspecified; Z98.890 Other specified postprocedural states; Z88.8 Allergy status to other drugs, medicaments and biological substances; Z79.899 Other long term (current) drug therapy
CPT/HCPCS: 36415; 71045; 80048; 80076; 83880; 84484; 85025; 93970

== ENCOUNTER 2024-01-13 15:08 | Emergency (ER) | payer BC ==
[~2024-01-13] VITALS: Ht 152.4 cm; Wt 86.2 kg
[2024-01-13 16:03] LABS: Urine WBC None Seen /hpf (0 - 5)
[2024-01-13 16:23] LABS: Urine Bacteria FEW /hpf (None Seen); Urine Blood Negative /uL (Negative); Urine Clarity Clear (Clear); Urine Color Light-Yellow (Yellow); Urine Protein, UAD Negative (Negative); Urine Specific Gravity 1.006 (1.001-1.035); Urine Urobilinogen Normal (Negative); Urine pH 5.5 (5.0-9.0)
[2024-01-13] MEDS ORDERED: TRAM50TA2 PO (19:19)
[2024-01-13 20:28] VITALS: BP 193/80; PULSE 69; RESP 19; TEMP 97.9; O2SAT 96
== END 2024-01-13 20:29 | disposition home or self-care (01) ==
LOC: ER 15:08
DX: M54.16 Radiculopathy, lumbar region (principal); I10 Essential (primary) hypertension; E78.5 Hyperlipidemia, unspecified; K21.9 Gastro-esophageal reflux disease without esophagitis; E11.9 Type 2 diabetes mellitus without complications; F41.9 Anxiety disorder, unspecified; Z98.890 Other specified postprocedural states; Z88.2 Allergy status to sulfonamides; Z79.899 Other long term (current) drug therapy
CPT/HCPCS: 74176; 81001

== ENCOUNTER 2024-10-01 11:27 | Inpatient (IN) | payer BC, MEDICAID ==
[~2024-10-01] VITALS: Ht 152.4 cm; Wt 73.4 kg
[~2024-10-01 11:27] MED LIST changes: +ASPI-543 PO; -ATEN50TA PO; +ATOR20TA50 PO; -AZIT500T66 PO; -BENZ200C64 PO; -DEXA6TAB6 PO; +DOCU-94 PO; -DOXY-448 PO; -HYDR-531 PO; +LABE200T33 PO; +LEVO175T4 PO; -LISI20TA56 PO; +LOSA-535 PO; -MULTTAB99 PO; -OMEP20TA PO; +POLY335015 PO
--- NOTE | 2024-10-01 12:40 | DVH ---
EXAM: XY CHEST PORTABLE Indication: sob Technique: Single frontal view of the chest was obtained Comparison: XY CHEST PORTABLE on DOS: 06/06/24, XY CHEST XRAY 1 VIEW on DOS: 08/14/23, CHEST PORTABLE on DOS: 05/22/20, CHEST PORTABLE on DOS: 05/19/20, CHEST PORTABLE on DOS: 05/18/20 FINDINGS: Lines and Tubes: None Lungs: No focal consolidation. Pleura: No effusion. No pneumothorax. Cardiomediastinal contours: Unremarkable Bones: No acute osseous abnormality. IMPRESSION: No acute cardiopulmonary disease.
[2024-10-01 13:32] LABS: Basophils # (auto) 0 10 ^3/uL (0-0.2); Basophils % (auto) 0.6 % (0.0-2.0); Eosinophils # (auto) 0.1 10 ^3/uL (0-0.8); Eosinophils % (auto) 1.7 % (0.0-7.0); Hematocrit 37.8 % (36.0-46.0); Hemoglobin 12.9 g/dL (12.2-16.2); Lymphocytes # (auto) 1.1 10 ^3/uL (0.4-5.4); Lymphocytes % (auto) 18.2 % (10.0-50.0); Mean Corpuscular Hemoglobin 30.1 pg (28.0-32.0); Mean Corpuscular Hgb Conc. 34.2 g/dL (32.0-36.0); Mean Corpuscular Volume 87.8 fL (80.0-100.0); Monocytes # (auto) 0.7 10 ^3/uL (0-1.3); Monocytes % (auto) 10.7 % (0.0-12.0); Neutrophils # (auto) 4.3 10 ^3/uL (1.6-8.6); Neutrophils % (auto) 68.8 % (37.0-80.0); Platelet Count (auto) 258 10^3/uL (140-450); Red Blood Cells 4.31 10^6/uL (4.0-5.20); Red Cell Distribution Width 13.8 % (11.8-14.3); White Blood Cell 6.3 10^3/uL (4.4-10.8)
[2024-10-01 13:38] LABS: Chloride 101 mmol/L (98-107); Potassium 4.1 mmol/L (3.5-5.1)
[2024-10-01 13:39] LABS: Anion Gap 9 (5-15); Calcium 9.9 mg/dL (8.7-10.4); Carbon Dioxide 26 mmol/L (20-31); Sodium 136 mmol/L (136-145)
[2024-10-01 13:44] LABS: BUN/Creatinine Ratio 13.3 (10.0-20.0); Blood Urea Nitrogen 11 mg/dL (9-23); Glucose 93 mg/dL (74-106)
--- NOTE | 2024-10-01 13:44 | ED.PDOC ---
SOB-HPI HPI Comments 74 y/o F, with PMHx of anxiety, DM, GERD, HLD, HTN and asthma presents to the ED for CC of shortness of breath. Patient states, that she has been experiencing shortness of breath with associated symptoms of chest wall pain when coughing x3days. Patient relays, shortness of breath to worsen with light exertion. Upon arrival to the ED, patient stating at 94% on room air. Patient denies fever, chills, sore-throat, nausea, vomiting, or headache. No other associated symptoms, modifiers, recent injuries or sick contacts present at this time. Chief Complaint: Shortness of Breath Time Seen by MD: 13:15 Primary Care Provider: JALEESA MCGUIRE Reviewed notes: Nurses Notes, Medications, Allergies Information Source: Patient Mode of Arrival: Ambulatory Severity: Moderate Timing: Days Duration: Since onset Context: At Rest PE Risk Factors: None History of: Asthma Prehospital treatment: None Modifying Factors: Nothing Associated Signs and Symptoms: Cough Quality: Pressure Radiation: No Radiation If cough with SOB: Non-Productive Past Medical History PAST MEDICAL HISTORY: Anxiety, DM, GERD, High Lipids, HTN, Thyroid Surgical History: BTL, Hernia Repair, Tubal Ligation [employer]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 Family History Family History: Reviewed,noncontributory to illness, Family hx of DM, Family hx of HTN Social History Smoker: Non-Smoker Alcohol: Rarely Drugs: Denies Drug Use Lives In: Home Constitutional: denies: chills, diaphoresis, fatigue, fever, malaise, sweats, weakness, others EENTM: denies: blurred vision, double vision, ear bleeding, ear discharge, ear drainage, ear pain, ear ringing, eye pain, eye redness, hearing loss, mouth pain, mouth swelling, nasal discharge, nose bleeding, nose congestion, nose pain, photophobia, tearing, throat pain, throat swelling, voice changes, others Respiratory: reports: cough, shortness of breath; denies: hemoptysis, orthopnea, SOB at rest, SOB with excertion, stridor, wheezing, others Cardiovascular: reports: chest pain; denies: dizzy spells, diaphoresis, Dyspnea on exertion, edema, irregular heart beat, left arm pain, lightheadedness, palpitations, PND, syncope, others Gastrointestinal: denies: abdomen distended, abdominal pain, blood streaked bowels, constipated, diarrhea, dysphagia, difficulty swallowing, hematemesis, melena, nausea, poor appetite, poor fluid intake, rectal bleeding, rectal pain, vomiting, others Genitourinary: denies: abnormal vagina bleeding, burning, dyspareunia, dysuria, flank pain, frequency, hematuria, incontinence, pain, , vagina discharge, urgency, others Neurological: denies: dizziness, fainting, headache, left sided numbness, left sided weakness, numbness, paresthesia, pre-existing deficit, right sided numbness, right sided weakness, seizure, speech problems, tingling, tremors, weakness, others Musculoskeletal: denies: back pain, gout, joint pain, joint swelling, muscle pain, muscle stiffness, neck pain, others Integumetry: denies: bruises, change in color, change in hair/nails, dryness, laceration, lesions, lumps, rash, wounds, others Allergic/Immunocompromised: denies: Difficulty Healing, Frequent Infections, Hives, Itching, others Hematologic/Lymphatic: denies: anemia, blood clots, easy bleeding, easy bruising, swollen glands, others Endocrine: denies: excessive hunger, excessive sweating, excessive thirst, excessive urination, flushing, intolerance to cold, intolerance to heat, unexplained weight gain, unexplained weight loss, others Psychiatric: denies: anxiety, bipolar disorder, depression, hopeless, panic disorder, schizophrenia, sleepless, suicidal, others All Other Systems: Reviewed and Negative Physical Exam General Appearance: Moderate Distress HEENT: Normal ENT Inspection, Pharynx Normal, TMs Normal Neck: Full Range of Motion, Non-Tender, Normal, Normal Inspection Respiratory: Accessory Muscle Use, Respiratory Distress, Wheezing Cardiovascular: No Edema, No JVD, No Murmur, No Gallop, Normal Peripheral Pulses, Regular Rate/Rhythm Breast Exam: Deferred Gastrointestinal: No Organomegaly, Non Tender, No Pulsatile Mass, Normal Bowel Sounds, Soft Genitalia: Deferred Pelvic: Deferred Rectal: Deferred Extremities: No calf tenderness, Normal capillary refill, Normal inspection, Normal range of motion, Non-tender, No pedal edema Musculoskeletal : Apperance: Normal Neurologic: Alert, tie sawyer II-XII nml as Tested, No Motor Deficits, Normal Affect, Normal Mood, No Sensory Deficits Cerebellar Function: NOT DONE Reflexes: NOT DONE Skin: Dry, Normal Color, Warm Peripheral Pulses: 3+ Radial (R), 3+ Radial (L) Lymphatic: No Adenopathy Was a procedure done? Was a procedure done?: No Differential Dx Differential Diagnosis: Anxiety, Asthma, Bronchitis, CHF, COPD, Pneumonia, Sinusitis, Pharyngitis, URI X-Ray, Labs, Meds, VS Vital Signs Date Time Temp Pulse Resp B/P (MAP) Pulse Ox O2 Delivery O2 Flow Rate FiO2 10/01/24 12:12 98.5 92 20 126/63 (84) 94 98.5 10/01/24 12:12 20 94 Room Air* 0 21 10/01/24 12:09 90 Lab Test 10/01/24 13:13 Range/Units White Blood Count 6.3 4.4-10.8 10^3/uL Red Blood Count 4.31 4.0-5.20 10^6/uL Hemoglobin 12.9 12.2-16.2 g/dL Hematocrit 37.8 36.0-46.0 % Mean Corpuscular Volume 87.8 80.0-100.0 fL Mean Corpuscular Hemoglobin 30.1 28.0-32.0 pg Mean Corpuscular Hemoglobin Concent 34.2 32.0-36.0 g/dL Red Cell Distribution Width 13.8 11.8-14.3 % Platelet Count 258 140-450 10^3/uL Mean Platelet Volume 5.9 L 6.9-10.8 fL Neutrophils (%) (Auto) 68.8 37.0-80.0 % Lymphocytes (%) (Auto) 18.2 10.0-50.0 % Monocytes (%) (Auto) 10.7 0.0-12.0 % Eosinophils (%) (Auto) 1.7 0.0-7.0 % Basophils (%) (Auto) 0.6 0.0-2.0 % Neutrophils # (Auto) 4.3 1.6-8.6 10 ^3/uL Lymphocytes # (Auto) 1.1 0.4-5.4 10 ^3/uL Monocytes # (Auto) 0.7 0-1.3 10 ^3/uL Eosinophils # (Auto) 0.1 0-0.8 10 ^3/uL Basophils # (Auto) 0 0-0.2 10 ^3/uL Nucleated Red Blood Cells 0.0 % Sodium Level 136 136-145 mmol/L Potassium Level 4.1 3.5-5.1 mmol/L Chloride Level 101 98-107 mmol/L Carbon Dioxide Level 26 20-31 mmol/L Anion Gap 9 5-15 Blood Urea Nitrogen 11 9-23 mg/dL Creatinine 0.83 0.550-1.02 mg/dL Glomerular Filtration Rate Calc 75 >90 mL/min BUN/Creatinine Ratio 13.3 10.0-20.0 Serum Glucose 93 74-106 mg/dL Calcium Level 9.9 8.7-10.4 mg/dL Troponin I High Sensitivity < 3 L </=34 ng/L [place] [id number] Ph: [phone] DIAGNOSTIC IMAGING Diagnostic Imaging Report : [id number] Signed PATIENT: ELIZABET REYES DIANEACCT: [id number] UNIT: [id number] : 1950 LOC: ER ROOM / BED: / AGE / SEX: 74 / F ADM STATUS: REG ER SERVICE 1206 ORDERING PHYSICIAN: ALLY THOMSON MD PROCEDURE(s): CXRP - CHEST PORTABLE REASON: sob ORDER NUMBER(s): [id number], ACCESSION NUMBER(s): [id number] EXAM: XY CHEST PORTABLE Indication: sob Technique: Single frontal view of the chest was obtained Comparison: XY CHEST PORTABLE on DOS: 06/06/24, XY CHEST XRAY 1 VIEW on DOS: 08/14/23, CHEST PORTABLE on DOS: 05/22/20, CHEST PORTABLE on DOS: 05/19/20, CHEST PORTABLE on DOS: 05/18/20 FINDINGS: Lines and Tubes: None Lungs: No focal consolidation. Pleura: No effusion. No pneumothorax. Cardiomediastinal contours: Unremarkable Bones: No acute osseous abnormality. IMPRESSION: No acute cardiopulmonary disease. ATED BY: DUANE MISHRA MD DICTATED DATE/TIME: 10/01/24 1237 SIGNED BY: DUANE MISHRA MD SIGNED DATE/TIME: 10/01/24 1237 CC: Patient alert. Complaining of shortness a breath. She is gasping for air. Cardiac marker within normal limits. Placed on oxygen. Possible pneumonitis. Was given steroid. Was given Rocephin. Was given azithromycin. EKG reviewed does not show any acute changes. Chest x-ray reviewed does show mild inflammation. Reviewed her history. Explained to the patient. Continue monitoring. Time of 1ST Reevaluation: 13:45 Reevaluation 1ST: Unchanged Patient Education/Counseling: Diagnosis, Treatment Family Education/Counseling: No Family Present Departure 1 Departure Time of Disposition: 14:40 Impression: Primary Impression: Pneumonitis Disposition: ADMITTED INPATIENT Admit to: Med Surg Condition: Guarded Critical Care Note Critical Care Time?: Yes (90 min-critical care time only) Critical care comment: Requiring oxygen Stability Stability form required: No Heart Score Heart Score: Heart Score Response (Comments) Value History Slightly Suspicious 0 EKG Normal 0 Age >65 2 Risk Factors >3 or Hx ASHD 2 Troponin Normal limit 0 Total 4 I personally scribed for ALLY THOMSON MD ([email or web address]) on 10/01/24 at 13:44. Electronically submitted by Torrie Morgan ([email or web address]). I personally scribed for ALLY THOMSON MD ([email or web address]) on 10/01/24 at 15:51. Electronically submitted by Torrie Morgan ([email or web address]). ALLY THOMSON MD Oct 01, 2024 13:44
--- NOTE | 2024-10-01 15:57 | DVHHP2 ---
History of Present Illness Reason for Visit: sob History of Present Illness 74-year-old female with a past medical history of type 2 diabetes mellitus, GERD, hypothyroidism, hyperlipidemia, hypertension, asthma, anxiety, and bilateral tubal ligation, who presents to the emergency department with shortness of breath that has been worsening over the past two days. The patient reports dyspnea at rest and worsening on exertion. She also notes a nonproductiv e cough, but denies fever, chest pain, leg swelling, or calf tenderness. She states that her asthma has been well-controlled until recently and does not recall any known allergen exposure or recent illness. She denies phlegm production, hemoptysis, orthopnea, or recent travel. In the ED, she was given Duoneb (albuterol/ipratropium) with improvement, and oxygen saturation stabilized with treatment. She remained hemodynamically stable.Laboratory and imaging results were as follows: CBC & BMP: Unremarkable Troponin: Negative Chest X-ray: Unremarkable COVID-19 and influenza testing: Pending D-dimer: Ordered to evaluate for pulmonary embolism Given persistent symptoms despite initial therapy and concern for underlying exacerbation or other pathology, the patient will be admitted for further management and monitoring. Past Medical History See HPI above Past Surgical History See HPI above Family History Reviewed, non-contributory to the management of this case. Past Social History The patient lives at home, denies smoking, alcohol or illicit drugs abuse. Review of Systems Constitutional: No: Fever, Chills, Sweats, Weakness, Malaise, Other Eyes: No: Pain, Vision change, Conjunctivae inflammation, Eyelid inflammation, Other, Redness ENT: No: Ear pain, Ear discharge, Nose pain, Nose discharge, Nose congestion, Mouth pain, Mouth swelling, Throat pain, Throat swelling, Other Respiratory: Shortness of breath, SOB with excertion, Wheezing; No: Cough, Dry, Hemoptysis, Pleuritic Pain, Sputum, Wheezing, Other Cardiovascular: No: Chest Pain, Palpitations, Orthopnea, Paroxysmal Noc. Dyspnea, Edema, Lt Headedness, Other Gastrointestinal: No: Nausea, Vomiting, Abdominal Pain, Diarrhea, Constipation, Melena, Hematochezia, Other Genitourinary: No Dysuria, No Frequency, No Incontinence, No Hematuria, No Retention, No Other Musculoskeletal: No: other, neck pain, shoulder pain, arm pain, back pain, hand pain, leg pain, foot pain Skin: No: Rash, Lesions, Jaundice, Bruising, Other Neurological: No: Weakness, Numbness, Incoordination, Change in speech, Confusion, Seizures, Other Allergies: Coded Allergies: Sulfa Antibiotics (Verified Allergy, Unknown, 07/31/19) Exam Vital Signs Vital Signs Date Time Temp Pulse Resp B/P (MAP) Pulse Ox O2 Delivery O2 Flow Rate FiO2 10/01/24 12:12 98.5 92 20 126/63 (84) 94 98.5 10/01/24 12:12 Room Air* 0 21 General Appearance: Alert, Oriented X3, Cooperative, No acute distress HEENT: Atraumatic, PERRLA, EOMI, Mucous membr. moist/pink Respiratory: Normal air movement, Other (Wheezes heard) Cardiovascular: Regular rate, Normal S1, Normal S2, No murmurs Abdominal: Normal bowel sounds, Soft, No tenderness, No hepatospenomegaly, No masses Extremities: No clubbing, No cyanosis, No edema, Normal pulses, No tenderness/swelling Skin: No rashes, No breakdown, No significant lesion Neuro: Normal gait, Normal speech, Strength at 5/5 X4 ext, Normal tone, Sensation intact, Cranial nerves 3-12 NL Psych/Mental Status: Mental status NL, Mood NL Labs/Xrays Chest x-ray unremarkable I reviewed labs, imaging CT scan abdomen pelvis, EKG and all diagnostic studies on this patient from ED records and the medical chart Labs Test 10/01/24 13:13 Range/Units White Blood Count 6.3 4.4-10.8 10^3/uL Red Blood Count 4.31 4.0-5.20 10^6/uL Hemoglobin 12.9 12.2-16.2 g/dL Hematocrit 37.8 36.0-46.0 % Mean Corpuscular Volume 87.8 80.0-100.0 fL Mean Corpuscular Hemoglobin 30.1 28.0-32.0 pg Mean Corpuscular Hemoglobin Concent 34.2 32.0-36.0 g/dL Red Cell Distribution Width 13.8 11.8-14.3 % Platelet Count 258 140-450 10^3/uL Mean Platelet Volume 5.9 L 6.9-10.8 fL Neutrophils (%) (Auto) 68.8 37.0-80.0 % Lymphocytes (%) (Auto) 18.2 10.0-50.0 % Monocytes (%) (Auto) 10.7 0.0-12.0 % Eosinophils (%) (Auto) 1.7 0.0-7.0 % Basophils (%) (Auto) 0.6 0.0-2.0 % Neutrophils # (Auto) 4.3 1.6-8.6 10 ^3/uL Lymphocytes # (Auto) 1.1 0.4-5.4 10 ^3/uL Monocytes # (Auto) 0.7 0-1.3 10 ^3/uL Eosinophils # (Auto) 0.1 0-0.8 10 ^3/uL Basophils # (Auto) 0 0-0.2 10 ^3/uL Nucleated Red Blood Cells 0.0 % Sodium Level 136 136-145 mmol/L Potassium Level 4.1 3.5-5.1 mmol/L Chloride Level 101 98-107 mmol/L Carbon Dioxide Level 26 20-31 mmol/L Anion Gap 9 5-15 Blood Urea Nitrogen 11 9-23 mg/dL Creatinine 0.83 0.550-1.02 mg/dL Glomerular Filtration Rate Calc 75 >90 mL/min BUN/Creatinine Ratio 13.3 10.0-20.0 Serum Glucose 93 74-106 mg/dL Calcium Level 9.9 8.7-10.4 mg/dL Troponin I High Sensitivity < 3 L </=34 ng/L Assessment/Plan Assessment/Plan 74-year-old female with a history of asthma, now presenting with acute shortness of breath and cough, likely due to acute asthma exacerbation, but other causes including pulmonary embolism, viral infection, and cardiac etiology must be ruled out. acute dyspnea without hypoxia likely from asthma not likely from bnp cxr normal ordered ddimer fu results bnp normal o2 prn to keep sats >92% ordered albuterol and atrovent prn consider ct scan if ddimer is elevated no need for antibiotics since no fever or elevated wbc no cxr without pna Acute asthma exacerbation Shortness of breath at rest and exertion Cough without phlegm No prior history of recent exacerbation Plan: Admit for respiratory monitoring Continue albuterol/ipratropium nebulizers q4h atc and PRN Start IV steroids (dexamethasone for now since no solumedrol available) Monitor oxygen saturation and respiratory effort Rule out pulmonary embolism D-dimer ordered No leg swelling, but dyspnea out of proportion Plan: If D-dimer elevated, obtain CT pulmonary angiogram Consider anticoagulation if confirmed PE not likley heart failure d/t bnp normal Rule out viral illness (COVID-19 or influenza) No fever or systemic symptoms Plan: COVID-19 and influenza PCR pending Isolate if positive Chronic conditions DM, ISS HTN, HLD, hypothyroidism, GERD, protonix anxiety fen/ppx diet hl protonix scd hl lovenox DISPOSITION Admit to medical floor for monitoring and treatment of asthma exacerbation. Workup ongoing to rule out PE or viral cause. Continue respiratory therapy, initiate steroids, and follow up on labs and imaging. Plan discussed with: Patient Date of Service: Oct 01, 2024 Billing Provider: JALEESA JACOBO DNP Common Visit Codes: [id number] INP/OBS CARE (HIGH) JALEESA JACOBO DNP Oct 01, 2024 15:57
[2024-10-01] MEDS ORDERED: ONDANSETRON HCL 4 MG/2 ML VIAL IV PRN (16:45)
[2024-10-01] MEDS ORDERED: DEXTROSE (50%) 50ML SYRG IV PRN (16:45)
[2024-10-01] MEDS ORDERED: NITROGLYCERIN 0.4 MG SL TAB SL PRN (16:45)
[2024-10-01] MEDS ORDERED: DOCUSATE SOD 100 MG CAP PO PRN (16:45)
[2024-10-01 17:13] LABS: INR 0.99 (0.9-1.15); Prothrombin Time 10.5 sec (9.3-11.8)
--- NOTE | 2024-10-01 19:05 | ECG ---
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
[2024-10-01] MEDS: ACCU-CHEK COMFORT CURVE STRIP VI SCH (20:34)
[2024-10-01] MEDS: SODIUM CHLORIDE 0.9% 1,000 ML IV SCH (20:40)
[2024-10-01] MEDS: ACETAMINOPHEN 500 MG TAB or CAP PO ONE (20:45)
[2024-10-01] MEDS: PANTOPRAZOLE 40 MG/10 ML VIAL INJ IV ONE (20:45)
[2024-10-01] MEDS: cefTRIAXone 1GM/50ML D5W 50 ML IV ONE (20:45)
[2024-10-01] MEDS: methylPREDNISolone SOD SUCC 125 MG/2 ML VL IV ONE (20:45)
[2024-10-01] MEDS: InsuLIN REG 1unit/0.01ml Soln (100units/ml) SC SCH (20:46)
[2024-10-01] MEDS: ENOXAPARIN SOD 40 MG/0.4 ML SYRINGE SC SCH (20:46)
[2024-10-01 21:03] VITALS: O2SAT 97
[2024-10-01 21:34] LABS: COVID19 ANTIGEN SOFIA FIA NEGATIVE (NEGATIVE); Rapid Influenza A Negative (Negative); Rapid Influenza B Negative (Negative)
[2024-10-01 21:39] VITALS: PULSE 106; RESP 18; O2SAT 97
[2024-10-01] MEDS: ALBUTEROL SULF 2.5 MG/0.5ML(0.5%) NEB SOLN NEB ONE (21:39)
[2024-10-01] MEDS: IPRATROPIUM BROM 0.5 MG/2.5ML INH SOL NEB PRN (21:39)
[2024-10-01 21:45] VITALS: BP 149/85; PULSE 106; RESP 18; TEMP 101.6; O2SAT 97
[2024-10-01 21:46] VITALS: PULSE 103; RESP 18; O2SAT 99
[2024-10-01] MEDS ORDERED: methylPREDNISolone SOD SUCC 40 MG/ML VL IV SCH (22:00)
[2024-10-01] MEDS ORDERED: IPRATROPIUM BROM 0.5 MG/2.5ML INH SOL NEB SCH (22:00)
[2024-10-01 22:55] LABS: Urine Bacteria None Seen /hpf (None Seen)
[2024-10-01] MEDS: AZITHROMYCIN 500MG/ 250ML 250 ML IV ONE (22:55)
[2024-10-01] MEDS: DexAMETHasone SOD PHOS 10MG/1ML VIAL INJ IV SCH (22:55)
[2024-10-01 23:17] LABS: Urine Blood Negative /uL (Negative); Urine Clarity Clear (Clear); Urine Color Yellow (Yellow); Urine Mucus FEW (None Seen); Urine Protein, UAD Negative (Negative); Urine Specific Gravity 1.024 (1.001-1.035); Urine Squamous Epithelial Cell FEW /hpf (<5); Urine Urobilinogen Normal (Negative); Urine WBC 1 /HPF (0-5); Urine pH 5.5 (5.0-9.0)
[2024-10-02] VITALS (11 sets, daily range): BP systolic 125–164; BP diastolic 61–81; PULSE 88–101; RESP 17–22; TEMP 97.9–98.3; O2SAT 91–99
[2024-10-02 07:18] LABS: Basophils # (auto) 0 10 ^3/uL (0-0.2); Basophils % (auto) 0.2 % (0.0-2.0); Eosinophils # (auto) 0 10 ^3/uL (0-0.8); Hematocrit 39.1 % (36.0-46.0); Hemoglobin 13.5 g/dL (12.2-16.2); Lymphocytes # (auto) 0.8 10 ^3/uL (0.4-5.4); Lymphocytes % (auto) 12.6 % (10.0-50.0); Mean Corpuscular Hemoglobin 30.2 pg (28.0-32.0); Mean Corpuscular Hgb Conc. 34.5 g/dL (32.0-36.0); Mean Corpuscular Volume 87.4 fL (80.0-100.0); Monocytes # (auto) 0.1 10 ^3/uL (0-1.3); Neutrophils # (auto) 5.5 10 ^3/uL (1.6-8.6); Neutrophils % (auto) 85.2 % (37.0-80.0); Platelet Count (auto) 262 10^3/uL (140-450); Red Blood Cells 4.47 10^6/uL (4.0-5.20); Red Cell Distribution Width 13.5 % (11.8-14.3); White Blood Cell 6.5 10^3/uL (4.4-10.8)
[2024-10-02 07:33] LABS: Alanine Aminotransferase 19 U/L (7-40); Albumin 4.6 g/dL (3.2-4.8); Alkaline Phosphatase 104 U/L (46-116); Anion Gap 12 (5-15); Aspartate Aminotransferase 17 U/L (13-40); BUN/Creatinine Ratio 10.4 (10.0-20.0); Calcium 9.9 mg/dL (8.7-10.4); Carbon Dioxide 22 mmol/L (20-31); Chloride 101 mmol/L (98-107); Total Protein 6.8 g/dL (5.7-8.2)
[2024-10-02 07:34] LABS: Bilirubin, Total 0.6 mg/dL (0.2-1.0); Blood Urea Nitrogen 8 mg/dL (9-23); Glucose 170 mg/dL (74-106); Potassium 3.5 mmol/L (3.5-5.1); Sodium 135 mmol/L (136-145)
[2024-10-02] MEDS: PANTOPRAZOLE 40 MG/10 ML VIAL INJ IV SCH (08:38)
[2024-10-02] MEDS: ALBUTEROL SULF 2.5 MG/0.5ML(0.5%) NEB SOLN NEB PRN (09:28)
[2024-10-02] MEDS: IOHEXOL 350 MG/ML 100ML IJ ONE (12:10)
--- NOTE | 2024-10-02 13:29 | DVH ---
Procedure: CT CT ANGIO CHEST CONTRAST Reason for study/Clinical History: rule out PE Comparison Study: CT chest abdomen and pelvis 09/28/2020 and chest radiograph 10/01/2024 Exam Date: 10/02/2024 12:18 PM Radiation Dose Information: CT Dose: CTDI volume is 5.92 mGy. Dose-length product is 507.12 mGy*cm TECHNIQUE: After the uneventful administration of intravenous contrast intravenously, CT imaging was performed through the chest. Coronal and sagittal reformations were performed by the technologist. Ad ditional 3D maximum intensity projection images are obtained evaluated. FINDINGS: The thyroid gland is not well-visualized. Heart size is within normal limits. Mild atherosclerotic calcification of the aorta. No evidence of a ortic aneurysm or dissection. No pulmonary embolism. No significant mediastinal or hilar lymphadenopathy. No pneumothorax, pleural effusion or focal airspace consolidation. Bibasilar and Bilateral dependent atelectasis. Mild elevation of the right hemidiaphragm. Moderate hiatal hernia. Gastric wall thickening. Moderate amount of fecal material within the colon. Otherwise, partial view of the upper abdomen is unremarkab le. The soft tissues are unremarkable. No destructive osseous lesions are noted. Multilevel anterior and anterolateral lateral bridging osteophytes. IMPRESSION: No pulmonary embolism. No aortic aneurysm or dissection. Bibasilar Bilateral dependent atelectasis. Otherwise, no evidence of acute intrathoracic abnormaliti es. Moderate size hiatal hernia. Gastric wall thickening. Correlate for gastritis.
--- NOTE | 2024-10-02 14:12 | DVHPNRES ---
Progress Note Date Seen: Oct 02, 2024 Resident Creating Document: BAILEY GARCÍA RESIDENT Has the PT tested + for MRSA If YES, has PT been informed?: No Medical Necessity Reason Pt with a Central, PICC or Fol: No Subjective Review of Systems 74-year-old female with a past medical history of type 2 diabetes mellitus, GERD, hypothyroidism, hyperlipidemia, hypertension, asthma, anxiety who presents to the emergency department with shortness of breath that has been worsening over the past two days. The patient reports dyspnea at rest and worsening on exertion. She also notes a nonproductive cough, but denies fever, chest pain, leg swelling, or calf tenderness. She states that her asthma has been well- controlled until recently and does not recall any known allergen exposure or recent illness. She denies phlegm production, hemoptysis, orthopnea, or recent travel. In the ED, she was given Duoneb (albuterol/ipratropium) with improvement, and oxygen saturation stabilized with treatment. She remained hemodynamically stable.Laboratory and imaging results were as follows: CBC & BMP: Unremarkable Troponin: Negative Chest X-ray: Unremarkable COVID-19 and influenza testing: D-dimer: positive AngioCT scan negative for PE Past Social History The patient lives at home, denies smoking, alcohol or illicit drugs abuse. Objective vital signs Vital Sign Date Time Temp Pulse Resp B/P (MAP) Pulse Ox O2 Delivery O2 Flow Rate FiO2 10/02/24 09:28 93 Room Air* 0 21 10/02/24 09:28 101 18 10/02/24 09:03 98.3 139/61 (87) 98.3 Total Intake and Output 10/01/24 10/01/24 10/02/24 15:00 23:00 07:00 Intake Total 100 ml 450 ml Balance 100 ml 450 ml medications Current Medications Medications Dose Ordered Sig/Sorin Route Start Time Stop Time Status Last Admin Dose Admin Pantoprazole Sodium 40 mg DAILY IV 10/02/24 10:00 10/02/24 08:38 40 MG Diagnostic Test (Pha) 1 strip ACHS 10/01/24 17:00 10/02/24 06:27 1 STRIP Insulin Human Regular ACHS SC 10/01/24 17:00 Dextrose 50 ml UD PRN IV 10/01/24 16:45 Sodium Chloride 1,000 ml @ 30 mls/hr Q24H IV 10/01/24 16:45 Ondansetron HCl 4 mg Q4HP PRN IV 10/01/24 16:45 Docusate Sodium 100 mg BIDPRN PRN PO 10/01/24 16:45 Morphine Sulfate 2 mg Q4HPRN PRN IV 10/01/24 16:45 Enoxaparin Sodium 40 mg DAILY SC 10/01/24 16:45 10/02/24 08:40 40 MG Nitroglycerin 0.4 mg Q5MINP PRN SL 10/01/24 16:45 Dexamethasone Sodium Phosphate 6 mg DAILY IV 10/01/24 22:00 10/02/24 08:38 6 MG Albuterol 2.5 mg Q4HPRN PRN NEB 10/01/24 21:30 10/02/24 09:28 2.5 MG Ipratropium [place] 0.5 mg Q4HPRN PRN NEB 10/01/24 21:30 10/02/24 09:28 0.5 MG Examination General Appearance: Alert, Oriented X3, Cooperative, No acute distress HEENT: Atraumatic, PERRLA, EOMI, Mucous membr. moist/pink Respiratory: Normal air movement, no wheezing Cardiovascular: Regular rate, Normal S1, Normal S2, No murmurs Abdominal: Normal bowel sounds, Soft, No tenderness, No hepatospenomegaly, No masses Extremities: No clubbing, No cyanosis, No edema, Normal pulses, No tenderness/swelling Skin: No rashes, No breakdown, No significant lesion Neuro: Normal gait, Normal speech, Strength at 5/5 X4 ext, Normal tone, Sensation intact, Cranial nerves 3-12 NL Psych/Mental Status: Mental status NL, Mood NL laboratory and microbiology Laboratory Tests 10/02/24 06:33 Test 10/02/24 06:33 Range/Units Serum Glucose 170 H 74-106 mg/dL Problem List/Assessment/Plan Problem List/Assessment/Plan #Asthma exacerbation #PE ruled out #Diabetes? #HTN #Hypothyroidism #GERD #Anxiety Cardiac diet Breathing treatments PRN FBG 170 hba1c pending ISS Prednisone PO Levothyroxine PO Hold on BPs meds for now dc fluids, dc dexamethasone Case discussed with Dr Evans Plan discussed with: Patient, Other (rn) My Orders My Orders Orders - BAILEY GARCÍA RESIDENT Procedure Category Date Status Time Ct Angio Chest CT 10/02/24 Resulted Contrast 08:48 Date of Service: Oct 02, 2024 Billing Provider: MATHEW EVASN MD Common Visit Codes: [id number] INP/OBS CARE(HIGH) BAILEY GARCÍA RESIDENT Oct 02, 2024 14:12 MATHEW EVANS MD Oct 02, 2024 22:13
[2024-10-02 19:47] LABS: Triglycerides 71 mg/dL (< 150)
[2024-10-02 19:48] LABS: LDL Cholesterol 73 mg/dL (< 100)
[2024-10-02 19:50] LABS: Cholesterol 147 mg/dL (< 200); HDL Cholesterol 62 mg/dL (40-59)
[2024-10-03] VITALS (12 sets, daily range): BP systolic 129–167; BP diastolic 66–78; PULSE 18–95; RESP 14–20; TEMP 97.3–98.4; O2SAT 92–99
[2024-10-03] MEDS ORDERED: LEVOTHYROXINE SODIUM 50 MCG TAB PO SCH (06:00)
[2024-10-03 07:31] LABS: Free T3 1.93 pg/mL (2.3-4.2); Free T4 (Free Thyroxine) 1.45 ng/dL (0.89-1.76)
[2024-10-03] MEDS: predniSONE 20 MG TAB PO SCH (10:09)
[2024-10-03] MEDS: MORPHINE SULFATE INJ 2 MG/ml SYRG IV PRN (10:10)
[2024-10-03] MEDS ORDERED: ACETAMINOPHEN 325 MG TAB PO PRN (12:45)
[2024-10-03] MEDS: LEVOTHYROXINE SODIUM 25 MCG TAB PO ONE (14:06)
[2024-10-03] MEDS: LEVOTHYROXINE SODIUM 112 MCG TAB PO ONE (14:06)
[2024-10-03] MEDS: LEVOTHYROXINE SODIUM 100 MCG TAB PO SCH (16:42)
[2024-10-03] MEDS: LEVOTHYROXINE SODIUM 25 MCG TAB PO SCH (16:42)
[2024-10-03] MEDS: MELATONIN 5 MG TAB PO ONE (22:54)
[2024-10-04 04:58] VITALS: BP 150/69; PULSE 80; RESP 20; TEMP 98.7; O2SAT 96
[2024-10-04] MEDS ORDERED: LEVOTHYROXINE SODIUM 100 MCG TAB PO SCH (07:00)
[2024-10-04] MEDS ORDERED: LEVOTHYROXINE SODIUM 25 MCG TAB PO SCH (07:00)
[2024-10-04 09:06] VITALS: O2SAT 95
[2024-10-04] MEDS: LOSARTAN POTASSIUM 50 MG TAB PO SCH (09:19)
[2024-10-04] MEDS: LABETALOL HCL 200 MG TAB PO ONE (09:20)
[2024-10-04] MEDS ORDERED: METH4PAK PO (10:33)
[2024-10-04 11:31] VITALS: PULSE 80; TEMP 37.1
--- NOTE | 2024-10-04 13:23 | DVHPN2 ---
Reviewed: Care Plan, H&P, Labs, Medications, Previous Orders Changes from previous H/P or p: No Changes General: Per HPI Eyes: No Pain, No Vision change, No Conjunctivae inflammation, No Eyelid inflammation, No Other, No Redness ENT: No Ear pain, No Ear discharge, No Nose pain, No Nose discharge, No Nose congestion, No Mouth pain, No Mouth swelling, No Throat pain, No Throat swelling, No Other Cardiovascular: No Chest Pain, No Palpitations, No Orthopnea, No Paroxysmal Noc. Dyspnea, No Edema, No Lt Headedness, No Other Respiratory: No Cough, No Dry; Shortness of breath, SOB with excertion, W heezing; No Hemoptysis, No Pleuritic Pain, No Sputum, No Other Gastrointestinal: No Nausea, No Vomiting, No Abdominal Pain, No Diarrhea, No Constipation, No Melena, No Hematochezia, No Other Genitourinary: No Dysuria, No Frequency, No Incontinence, No Hematuria, No Retention, No Other Musculoskeletal: No other, No neck pain, No shoulder pain, No arm pain, No back pain, No hand pain, No leg pain, No foot pain Skin: No Rash, No Lesions, No Jaundice, No Bruising, No Other Objective Vitals Vital Signs Date Time Temp Pulse Resp B/P (MAP) Pulse Ox O2 Delivery O2 Flow Rate FiO2 10/04/24 11:31 37.1 80 10/04/24 09:20 150/69 10/04/24 09:06 95 Room Air 0.0 10/04/24 09:06 21 10/04/24 04:58 20 Intake/Output Intake and Output 10/04/24 07:00 Intake Total 1140 ml Output Total 420 ml Balance 720 ml Intake Oral 1140 ml Output Urine Total 420 ml # Voids 3 # Bowel Movements 1 General Appearance: Alert, Oriented X3, Cooperative Medications Current Medications Medications Dose Ordered Sig/Sorin Route Start Time Stop Time Status Last Admin Dose Admin Levothyroxine Sodium 100 mcg QAM PO 10/04/24 07:00 Cancel Laboratory Results Laboratory Tests 10/02/24 06:33 Urinalysis Test 10/01/24 22:50 Urine Color Yellow (Yellow) Urine Clarity Clear (Clear) Urine pH 5.5 (5.0-9.0) Urine Specific [place] 1.024 (1.001-1.035) Urine Protein Negative (Negative) Urine Ketones Trace (Negative) Urine Blood Negative /uL (Negative) Urine Nitrite Negative (Negative) Urine Bilirubin Negative (Negative) Urine Urobilinogen Normal mg/dL (Negative) Urine Leukocyte Esterase Negative /uL (Negative) Urine RBC 2 /hpf (0 - 4) Urine Microscopic WBC 1 /HPF (0-5) Urine Squamous Epithelial Cells Few /hpf (<5) Urine Bacteria None seen /hpf (None Seen) Urine Mucus Few (None Seen) Urine Glucose Normal mg/dL (Normal) Labs and/or images reviewed: Labs reviewed by me, Image(s) reviewed by me Assessment/Plan Assessment/Plan #Asthma exacerbation #PE ruled out #Diabetes? #HTN #Hypothyroidism #GERD #Anxiety continue current care still wheezing Plan discussed with: Patient Date of Service: Oct 03, 2024 Billing Provider: KYLE SANDERS DO Common Visit Codes: [id number] INP/OBS CARE(HIGH) KYLE SANDERS DO Oct 04, 2024 13:23
--- NOTE | 2024-10-04 14:32 | DVHDSRES ---
Discharge Summary Date of Admission Resident Creating Document: BAILEY GARCÍA RESIDENT Oct 01, 2024 at 16:41 Date of Discharge: Oct 04, 2024 Admitting Diagnosis #Asthma exacerbation Labs/Diagnostic Data: Laboratory Results Test 10/03/24 21:18 10/03/24 06:11 10/02/24 06:33 10/02/24 06:13 POC Glucose 159 mg/dl (70-106) Hemoglobin A1c 5.4 % A1C (<5.7) Free Thyroxine (T4) Calculated 1.45 ng/dL (0.89-1.76) Free Triiodothyronine (T3) pg/mL 1.93 pg/mL (2.3-4.2) White Blood Count 6.5 10^3/uL (4.4-10.8) Red Blood Count 4.47 10^6/uL (4.0-5.20) Hemoglobin 13.5 g/dL (12.2-16.2) Hematocrit 39.1 % (36.0-46.0) Mean Corpuscular Volume 87.4 fL (80.0-100.0) Mean Corpuscular Hemoglobin 30.2 pg (28.0-32.0) Mean Corpuscular Hemoglobin Concent 34.5 g/dL (32.0-36.0) Red Cell Distribution Width 13.5 % (11.8-14.3) Platelet Count 262 10^3/uL (140-450) Mean Platelet Volume 6.3 fL (6.9-10.8) Neutrophils (%) (Auto) 85.2 % (37.0-80.0) Lymphocytes (%) (Auto) 12.6 % (10.0-50.0) Monocytes (%) (Auto) 2.0 % (0.0-12.0) Eosinophils (%) (Auto) 0.0 % (0.0-7.0) Basophils (%) (Auto) 0.2 % (0.0-2.0) Neutrophils # (Auto) 5.5 10 ^3/uL (1.6-8.6) Lymphocytes # (Auto) 0.8 10 ^3/uL (0.4-5.4) Monocytes # (Auto) 0.1 10 ^3/uL (0-1.3) Eosinophils # (Auto) 0 10 ^3/uL (0-0.8) Basophils # (Auto) 0 10 ^3/uL (0-0.2) Nucleated Red Blood Cells 0.0 % Sodium Level 135 mmol/L (136-145) Potassium Level 3.5 mmol/L (3.5-5.1) Chloride Level 101 mmol/L (98-107) Carbon Dioxide Level 22 mmol/L (20-31) Anion Gap 12 (5-15) Blood Urea Nitrogen 8 mg/dL (9-23) Creatinine 0.77 mg/dL (0.550-1.02) Glomerular Filtration Rate Calc 82 mL/min (>90) BUN/Creatinine Ratio 10.4 (10.0-20.0) Serum Glucose 170 mg/dL (74-106) Calcium Level 9.9 mg/dL (8.7-10.4) Total Bilirubin 0.6 mg/dL (0.2-1.0) Aspartate Amino Transferase (AST) 17 U/L (13-40) Alanine Aminotransferase (ALT) 19 U/L (7-40) Alkaline Phosphatase 104 U/L (46-116) Total Protein 6.8 g/dL (5.7-8.2) Albumin 4.6 g/dL (3.2-4.8) Triglycerides Level 71 mg/dL (< 150) Cholesterol Level 147 mg/dL (< 200) LDL Cholesterol 73 mg/dL (< 100) HDL Cholesterol 62 mg/dL (40-59) Thyroid Stimulating Hormone (TSH) 0.02 uIU/mL (0.55-4.78) Test 10/01/24 22:50 10/01/24 20:30 10/01/24 13:13 Urine Color Yellow (Yellow) Urine Clarity Clear (Clear) Urine pH 5.5 (5.0-9.0) Urine Specific [place] 1.024 (1.001-1.035) Urine Protein Negative (Negative) Urine Ketones Trace (Negative) Urine Blood Negative /uL (Negative) Urine Nitrite Negative (Negative) Urine Bilirubin Negative (Negative) Urine Urobilinogen Normal mg/dL (Negative) Urine Leukocyte Esterase Negative /uL (Negative) Urine RBC 2 /hpf (0 - 4) Urine Microscopic WBC 1 /HPF (0-5) Urine Squamous Epithelial Cells Few /hpf (<5) Urine Bacteria None seen /hpf (None Seen) Urine Mucus Few (None Seen) Urine Glucose Normal mg/dL (Normal) Influenza Type A Antigen Negative (Negative) Influenza Type B Antigen Negative (Negative) SARS-CoV-2 Antigen (Rapid) Negative (NEGATIVE) Prothrombin Time 10.5 sec (9.3-11.8) Prothrombin Time INR 0.99 (0.9-1.15) D-Dimer, Quantitative 2.31 mg/L FEU (0.0-0.49) Troponin I High Sensitivity < 3 ng/L (</=34) B-Type Natriuretic Peptide 27.85 pg/mL (0-100) Other Laboratory Tests 10/02/24 06:33 Brief Hx & Hospital Course: 74-year-old female with PMHx of asthma, type 2 diabetes mellitus, GERD, hypothyroidism, hyperlipidemia, hypertension, and anxiety presented with dyspnea at rest and on exertion. She denied fever, chest pain, leg swelling, or productive cough. Initial workup showed stable vitals, O2 sat 93% on room air. Labs revealed unremarkable CBC, BMP, troponin, and negative COVID/flu testing. D-dimer was elevated; however, PE was ruled out with a negative angioCT. Chest X-ray was unremarkable. She received albuterol/ipratropium in the ED with improvement in symptoms and oxygenation. She remained hemodynamically stable throughout admission. Blood pressure medications were held due to stable vitals and clinical improvement. Steroids were transitioned from IV to PO. Cardiac diet was maintained. FBG was 170; HbA1c 5.4 General Appearance: Alert, Oriented X3, Cooperative, No acute distress HEENT: Atraumatic, PERRLA, EOMI, Mucous membr. moist/pink Respiratory: Normal air movement, no wheezing Cardiovascular: Regular rate, Normal S1, Normal S2, No murmurs Abdominal: Normal bowel sounds, Soft, No tenderness, No hepatospenomegaly, No masses Extremities: No clubbing, No cyanosis, No edema, Normal pulses, No tenderness/swelling Skin: No rashes, No breakdown, No significant lesion Neuro: Normal gait, Normal speech, Strength at 5/5 X4 ext, Normal tone, Sensation intact, Cranial nerves 3-12 NL Psych/Mental Status: Mental status NL, Mood NL Medications at Discharge: Medrol pack Resume home meds as needed Continue GERD and psychiatric medications as outpatient Case discussed with Dr Desir Operations or Procedures Procedure: CT CT ANGIO CHEST CONTRAST Reason for study/Clinical History: rule out PE Comparison Study: CT chest abdomen and pelvis 09/28/2020 and chest radiograph 10/01/2024 Exam Date: 10/02/2024 12:18 PM Radiation Dose Information: CT Dose: CTDI volume is 5.92 mGy. Dose-length product is 507.12 mGy*cm TECHNIQUE: After the uneventful administration of intravenous contrast intravenously, CT imaging was performed through the chest. Coronal and sagittal reformations were performed by the technologist. Additional 3D maximum intensity projection images are obtained evaluated. FINDINGS: The thyroid gland is not well-visualized. Heart size is within normal limits. Mild atherosclerotic calcification of the aorta. No evidence of aortic aneurysm or dissection. No pulmonary embolism. No significant mediastinal or hilar lymphadenopathy. No pneumothorax, pleural effusion or focal airspace consolidation. Bibasilar and Bilateral dependent atelectasis. Mild elevation of the right hemidiaphragm. Moderate hiatal hernia. Gastric wall thickening. Moderate amount of fecal material within the colon. Otherwise, partial view of the upper abdomen is unremarkable. The soft tissues are unremarkable. No destructive osseous lesions are noted. Multilevel anterior and anterolateral lateral bridging osteophytes. IMPRESSION: No pulmonary embolism. No aortic aneurysm or dissection. Bibasilar Bilateral dependent atelectasis. Otherwise, no evidence of acute intrathoracic abnormalities. Moderate size hiatal hernia. Gastric wall thickening. Correlate for gastritis. Condition at Discharge: Stable Final Diagnosis/Problems List #Asthma, intrinsic not allergic, exacerbation #PE ruled out #Prediabetes #HTN #Hypothyroidism #GERD #Anxiety Discharge Disposition: Home Discharge Instruct/Medications Diet: Consistent carbohydrate Activity: Light activity Follow Up/Referral: [place] [facility] Medications: see prescription Discharge Statement: "Patient was advised to return to the ER or call 911 if any headaches, dizziness, shortness of breath, chest pain, abdominal pain, bleeding, fevers, or worsening of medical condition. Patient was counseled about treatment plan, medications, possible side effects, patientverbalized understanding. All questions were answered to the best of my ability. This discharge took greater then 30 minutes in planning, reviewing documentation, counseling the patient, and discussing with other team members." ASSESSMENT ASSESSMENT Assessment #Asthma exacerbation #PE ruled out #Prediabetes #HTN #Hypothyroidism #GERD #Anxiety BAILEY GARCÍA RESIDENT Oct 04, 2024 14:32
== END 2024-10-04 12:40 | disposition home or self-care (01) | DRG 202 ==
LOC: ER 11:41 → OVERFLOW 16:41 → WEST WING 16:45
PROVIDERS: ADMIT Internal Medicine; ATTEND Internal Medicine
DX: J45.901 Unspecified asthma with (acute) exacerbation (principal); J98.11 Atelectasis; E78.5 Hyperlipidemia, unspecified; E11.9 Type 2 diabetes mellitus without complications; K21.9 Gastro-esophageal reflux disease without esophagitis; Z20.822 Contact with and (suspected) exposure to COVID-19; I10 Essential (primary) hypertension; F41.9 Anxiety disorder, unspecified; J98.4 Other disorders of lung; E03.9 Hypothyroidism, unspecified; Z79.899 Other long term (current) drug therapy
CPT/HCPCS: 36415; 71045; 71275; 80048; 80053; 80061; 81001; 82962; 83036; 83880; 84439; 84443; 84481; 84484; 85025; 85379; 85610; 87426; 87804; 93005; 94640; 99291; 99292; G0378; J1100; J1815; J2470

== ENCOUNTER 2025-03-31 15:19 | Emergency (ER) | payer BC, MEDICAID ==
[~2025-03-31] VITALS: Ht 330.2 cm; Wt 70.0 kg
[~2025-03-31 15:19] MED LIST changes: -LEVO175T4 PO; +METH4PAK PO
[2025-03-31 15:21] VITALS: BP 160/85; PULSE 73; RESP 15; TEMP 98.4; O2SAT 98
[2025-03-31] MEDS: HYDROcodone-ACET 5/325MG TAB PO ONE (16:00)
--- NOTE | 2025-03-31 16:21 | DVH ---
EXAM: XY R ELBOW 3 VIEW XRAY REASON FOR EXAM: Fall/trauma. Pain. TECHNIQUE: AP, lateral, and oblique views of the right elbow are submitted for review. COMPARISON: None FINDINGS: There is no acute fracture or dislocation. There is no elbow effusion. The soft tissues are grossly unremarkable. IMPRESSION: No acute fracture or dislocation.
--- NOTE | 2025-03-31 16:31 | DVH ---
INDICATION: Fall/right-sided posterior head trauma TECHNIQUE: Multidetector row CT of the head was performed without administration of intravenous contr ast. Dose lowering techniques have been used including automated exposure control and adjustment of mA and /or kv according to patient size. COMPARISON: None FINDINGS: Motion degraded examination. Apparent extra-axial hyperdensity in the right high frontal region (series 601 image [id number]). There is no evidence of acute intracranial hemorrhage elsewhere. There is no mass effect or shifting of midline structures. Generalized cerebral and cerebellar atroph y with prominence of sulci and ventricles. Periventricular white matter hypodensity likely reflect sm all vessel ischemic changes. No depressed calvarial fracture. DLP is 829.5 mGy-cm. CTDI vol is 51.7 mGy. IMPRESSION: 1. Motion degraded examination. 2. Apparent extra-axial hyperdensity in the right high frontal region may be artifactual. Repeat exam ination is recommended to exclude hemorrhage at this location.
--- NOTE | 2025-03-31 16:56 | ED.PDOC ---
History of Present Illness HPI Comments 75-year-old female presents to the ER with a chief complaint of left elbow and posterior head pain S/P fall. Patient reports that she fell yesterday in the [facility] [facility] parking lot onto her right elbow and the posterior region of the head. Patient has started to have headache, sudden vision changes since today and is able to ambulate. Denies any other symptoms at this time. Denies chills, fever, N/V/D, SOB, CP. No other associated symptoms, modifiers, recent injuries or sick contacts present at this time. Vital signs were stable on arrival. Chief Complaint: Fall Injury Time Seen by MD: 16:55 Primary Care Provider: JALEESA MCGUIRE Reviewed Notes: Nurses Notes, Medications, Allergies Allergies: Coded Allergies: Sulfa Antibiotics (Verified Allergy, Unknown, 07/31/19) Home Meds Active Scripts Methylprednisolone (Medrol Dosepak) 4 Mg Jordan, 4 MG PO UD for 7 Days, #21 TAB UAD Prov:BAILEY GARCÍA 10/04/24 Polyethylene Glycol 3350 (Miralax) 17 Gm Pow, 17 GM PO DAILY PRN, #30 POW Prov:ERIKA STEWART MD 06/09/24 Docusate Sodium (Colace) 100 Mg Cap, 1 CAP PO BID, #60 CAP 2 Refills Prov:ERIKA STEWART MD 06/09/24 Ipratropium [place] Hfa (Atrovent Hfa) 17 Mcg Aer, 17 MCG IN Q6HP PRN, #120 DOSE Prov:CHLOE SEN MD 05/23/20 Albuterol Sulfate (VENTOLIN MDI) 90 Mcg Ih, 180 MCG IN TIDPRN PRN, #1 INHALER Prov:CHLOE SEN MD 05/23/20 Reported Medications Citalopram Hydrobromide (Citalopram Hydrobromide) 40 Mg Tab, 40 MG PO DAILY for 30 Days, MG 06/07/24 Atorvastatin Calcium (ATORVASTATIN CALCIUM) 20 Mg Tab, 1 TAB PO HS, #30 TAB 5 Refills 06/07/24 Losartan Potassium (Losartan Potassium) 100 Mg Tab, 100 MG PO DAILY for 30 Days, MG 06/07/24 Labetalol Hcl (Labetalol Hcl) 200 Mg Tab, 200 MG PO BID for 30 Days, MG 06/07/24 Aspirin (Aspir-Low) 81 Mg Tab, 81 MG PO DAILY for 30 Days, MG 06/07/24 Levothyroxine Sodium (Levothyroxine Sodium) 150 Mcg Tab, 150 MCG PO QAM for 30 Days 07/31/19 Citalopram Hydrobromide (Citalopram Hydrobromide) 40 Mg Tab, 1 TAB PO DAILY 12/06/18 Information Source: Patient, Friend Mode of Arrival: Ambulatory Severity: Moderate Timing: Hours Duration: Since onset, Hours Prehospital treatment: None Past Medical History PAST MEDICAL HISTORY: Anxiety, DM, GERD, High Lipids, HTN, Thyroid Surgical History: BTL, Hernia Repair, Tubal Ligation DIRECTOR OF KNOWLEDGE MANAGEMENT History: No Pertinent DIRECTOR OF KNOWLEDGE MANAGEMENT History Family History Family History: Reviewed,noncontributory to illness, Unknown Social History Smoker: Non-Smoker Alcohol: Rarely Drugs: Denies Drug Use Lives In: Home Constitutional: denies: chills, diaphoresis, fatigue, fever, malaise, sweats, weakness, others EENTM: reports: others (Sudden vision change); denies: blurred vision, double vision, ear bleeding, ear discharge, ear drainage, ear pain, ear ringing, eye pain, eye redness, hearing loss, mouth pain, mouth swelling, nasal discharge, nose bleeding, nose congestion, nose pain, photophobia, tearing, throat pain, throat swelling, voice changes Respiratory: denies: cough, hemoptysis, orthopnea, SOB at rest, shortness of breath, SOB with excertion, stridor, wheezing, others Cardiovascular: denies: chest pain, dizzy spells, diaphoresis, Dyspnea on exertion, edema, irregular heart beat, left arm pain, lightheadedness, palpitations, PND, syncope, others Gastrointestinal: denies: abdomen distended, abdominal pain, blood streaked bowels, constipated, diarrhea, dysphagia, difficulty swallowing, hematemesis, melena, nausea, poor appetite, poor fluid intake, rectal bleeding, rectal pain, vomiting, others Genitourinary: denies: abnormal vagina bleeding, burning, dyspareunia, dysuria, flank pain, frequency, hematuria, incontinence, pain, , vagina discharge, urgency, others Neurological: reports: headache; denies: dizziness, fainting, left sided numbness, left sided weakness, numbness, paresthesia, pre-existing deficit, right sided numbness, right sided weakness, seizure, speech problems, tingling, tremors, weakness, others Musculoskeletal: reports: others (Right elbow pain and swelling); denies: back pain, gout, joint pain, joint swelling, muscle pain, muscle stiffness, neck pain Integumetry: denies: bruises, change in color, change in hair/nails, dryness, laceration, lesions, lumps, rash, wounds, others Allergic/Immunocompromised: denies: Difficulty Healing, Frequent Infections, Hives, Itching, others Hematologic/Lymphatic: denies: anemia, blood clots, easy bleeding, easy bru ising, swollen glands, others Endocrine: denies: excessive hunger, excessive sweating, excessive thirst, e xcessive urination, flushing, intolerance to cold, intolerance to heat, unexplained weight gain, unexplained weight loss, others Psychiatric: denies: anxiety, bipolar disorder, depression, hopeless, panic disorder, schizophrenia, sleepless, suicidal, others All Other Systems: Reviewed and Negative Physical Exam General Appearance: Moderate Distress ([id number] distress due to elbow and head pain concerns.), Normal HEENT: Head (Diffuse tenderness to palpation over the right-sided superior occipital lobe region. Mild resolving hematoma noted. No blood loss. No skull depression or deformity.), Normal ENT Inspection, Pharynx Normal, TMs Normal Neck: Full Range of Motion, Non-Tender, Normal, Normal Inspection Respiratory: Chest Non-Tender, Lungs Clear, No Accessory Muscle Use, No Respiratory Distress, Normal Breath Sounds Cardiovascular: No Edema, No JVD, No Murmur, No Gallop, Normal Peripheral Pulses, Regular Rate/Rhythm Breast Exam: Deferred Gastrointestinal: No Organomegaly, Non Tender, No Pulsatile Mass, Normal Bowel Sounds, Soft Genitalia: Deferred Pelvic: Deferred Rectal: Deferred Extremities: Other (Diffuse right-sided elbow tenderness to palpation throughout the olecranon region extending inferiorly down the posterior forearm. Localized edema with some ecchymosis. No abrasions or blood loss. Mild reduced range of motion.) Musculoskeletal : Apperance: Normal Neurologic: Alert, Normal Affect, Normal Mood, No Sensory Deficits Cerebellar Function: NOT DONE Reflexes: NOT DONE Skin: Dry, Normal Color, Warm Lymphatic: No Adenopathy Was a procedure done? Was a procedure done?: No Differential Dx Considerations may include: Elbow fracture, elbow contusion, subarachnoid hemorrhage, subdural hematoma, skull fracture, head trauma X-Ray, Labs, Meds, VS Vital Signs Date Time Temp Pulse Resp B/P (MAP) Pulse Ox O2 Delivery O2 Flow Rate FiO2 03/31/25 15:21 98.4 73 15 160/85 98 98.4 Current Medications Medications (Trade) Dose Ordered Sig/Sorin Route Start Time Stop Time Status Last Admin Acetaminophen/ Hydrocodone Bitart ([place] 5/325MG Tab) 1 tab ONCE ONCE PO 03/31/25 16:00 03/31/25 16:01 DC 03/31/25 16:00 X-Ray, Labs, Meds, VS Comment All studies performed the ED were evaluated by me personally. Right elbow x- rays were unremarkable for any acute fractures of the elbow or humerus. CT evaluation of the skull was unremarkable for any acute intracranial concerns or skull fracture. Patient sustained a head trauma and a elbow contusion. Advised pain medication as needed as well as ice therapy. Time of 1ST Reevaluation: 17:37 Reevaluation 1ST: Improved Consultation: PCP Patient Education/Counseling: Diagnosis, Treatment, Prognosis Family Education/Counseling: Diagnosis, Treatment, No Family Present SEPSIS Sepsis Screen Date sepsis recognized/suspect: Mar 31, 2025 Time Sepsis recognized/suspect: 1523 Recent Procedure: No On Antibiotic Therapy: No Respiratory Rate >20: No Heart Rate >90: No Temp<36 C (96.8 F) or >38.3 C: No SBP <90 or MAP <65 mmHG: No New Acute Mental Status Change: No Is the patient on CPAP, BIPAP,: No Physician Orders R Elbow 3 View Xray (03/31/25 15:48) Head Without Contrast (03/31/25 15:48) Head Without Contrast (03/31/25 16:46) Vital Signs Date Time Temp Pulse Resp B/P (MAP) Pulse Ox O2 Delivery O2 Flow Rate FiO2 03/31/25 15:21 98.4 73 15 160/85 98 98.4 Medications Medications Dose Ordered Sig/Sorin Route Start Time Stop Time Status Last Admin Dose Admin Acetaminophen/ Hydrocodone Bitart 1 tab ONCE ONCE PO 03/31/25 16:00 03/31/25 16:01 DC 03/31/25 16:00 Departure 1 Departure Time of Disposition: 17:37 Impression: Primary Impression: Fall Additional Impressions: Head trauma Elbow contusion Disposition: HOME / SELF CARE / HOMELESS Condition: Stable Additional Instructions: Advised pain medication as needed for symptomatic relief. If symptoms continue, patient will need to follow up with the primary care provider for longer-term management. e-Prescriptions Ibuprofen (Ibuprofen) 600 Mg Tab 1 TAB PO Q6HP PRN, #20 TAB Prov: RELL MEI PAC 03/31/25 Hydrocodone-Acetaminophen (Hydrocodone Bitartrate/AC 5-325 mg) 1 Tab Tab 1 TAB PO Q6HP PRN, #10 TAB Prov: RELL MEI PAC 03/31/25 Discharged With: Self, Relative Critical Care Note Critical Care Time?: No Stability Stability form required: No Heart Score Heart Score: Heart Score Response (Comments) Value History N/A 0 EKG N/A 0 Age N/A 0 Risk Factors N/A 0 Troponin N/A 0 Total 0 I personally scribed for RELL MEI PAC ([email or web address]) on 03/31/25 at 16:56. Elec tronically submitted by Lui Zuñiga ([email or web address]). RELL MEI PAC Mar 31, 2025 16:56
--- NOTE | 2025-03-31 17:26 | DVH ---
CT HEAD WITHOUT CONTRAST Indication: Fall/head trauma EXAM DATE: 03/31/2025 04:45 PM COMPARISON: CT HEAD WITHOUT CONTRAST on DOS: 03/31/25 TECHNIQUE: CT of the head without intravenous contrast. RADIATION DOSE: CTDIvol: 54 mGy, DLP: 1069 mGy*cm FINDINGS: There is no intracranial hemorrhage. There is no extra-axial fluid, mass, mass effect or midline shif t. The ventricles are midline and normal in size. Basilar cisterns are patent. Vpyb-gq-yrhqrdoo periv entricular and subcortical white matter chronic microvascular ischemic changes. Multiple old bilatera l basal ganglia / miller radiata infarct. Mastoids are well pneumatized. Mucosal thickening ethmoids.. Imaged portion of the orbits are unremar kable. IMPRESSION: No intracranial hemorrhage or mass effect. Kscc-[id number]-[id number] chronic microvascular ischemic changes. 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 MRI brain can be obtained to evaluate for superimposed acute infarction.
[2025-03-31] MEDS ORDERED: HYDR-4902 PO (17:39)
[2025-03-31] MEDS ORDERED: IBUP-1454 PO (17:39)
== END 2025-03-31 18:02 | disposition home or self-care (01) ==
LOC: ER 15:19
DX: S50.02XA Contusion of left elbow, initial encounter (principal); S09.90XA Unspecified injury of head, initial encounter; E11.9 Type 2 diabetes mellitus without complications; I10 Essential (primary) hypertension; K21.9 Gastro-esophageal reflux disease without esophagitis; F41.9 Anxiety disorder, unspecified; Z86.73 Personal history of transient ischemic attack (TIA), and cerebral infarction without residual deficits; Z88.2 Allergy status to sulfonamides; Z79.82 Long term (current) use of aspirin; Z98.51 Tubal ligation status; Z98.890 Other specified postprocedural states; W19.XXXA Unspecified fall, initial encounter; Y93.89 Activity, other specified; Y92.89 Other specified places as the place of occurrence of the external cause; Y99.8 Other external cause status
CPT/HCPCS: 70450; 73080

== ENCOUNTER 2025-05-19 13:19 | Inpatient (IN) | payer BC, MEDICAID ==
[2025-05-19] VITALS (8 sets, daily range): BP systolic 130–152; BP diastolic 66–98; PULSE 70–84; RESP 16–18; TEMP 97.8–98.2; O2SAT 96–100
[~2025-05-19] VITALS: Ht 154.9 cm; Wt 74.2 kg
[~2025-05-19 13:19] MED LIST changes: +HYDR-4902 PO; +IBUP-1454 PO
--- NOTE | 2025-05-19 13:50 | ED.PDOC ---
History of Present Illness HPI Comments 75F presents to the ER w/ prior MHx of anxiety, HTN, High Lipids, CVA, Thyroid:SHx of Hernia Repair, Tubal Ligation, Knee Sx, Shoulder Sx and the c/c of generalized weakness. Pt reports on having had generalized weakness associated w/ Dizziness, Chest tightness and /D for the past 2 weeks. Denies any symptoms at this time. Patient denies any SOB, numbness, tingling, fever, chills, or recent fall. Chief Complaint: General Weakness Time Seen by MD: 13:45 Primary Care Provider: JALEESA MCGUIRE Reviewed Notes: Nurses Notes, Medications, Allergies Allergies: Coded Allergies: Sulfa Antibiotics (Verified Allergy, Unknown, 07/31/19) Home Meds Active Scripts Ibuprofen (Ibuprofen) 600 Mg Tab, 1 TAB PO Q6HP PRN, #20 TAB Prov:RELL MEI PAC 03/31/25 Hydrocodone-Acetaminophen (Hydrocodone Bitartrate/AC 5-325 mg) 1 Tab Tab, 1 TAB PO Q6HP PRN, #10 TAB Prov:RELL MEI PAC 03/31/25 Methylprednisolone (Medrol Dosepak) 4 Mg Jordan, 4 MG PO UD for 7 Days, #21 TAB UAD Prov:BAILEY GARCÍA RESIDENT 10/04/24 Polyethylene Glycol 3350 (Miralax) 17 Gm Pow, 17 GM PO DAILY PRN, #30 POW Prov:ERIKA STEWART MD 06/09/24 Docusate Sodium (Colace) 100 Mg Cap, 1 CAP PO BID, #60 CAP 2 Refills Prov:ERIKA STEWART MD 06/09/24 Ipratropium [place] Hfa (Atrovent Hfa) 17 Mcg Aer, 17 MCG IN Q6HP PRN, #120 DOSE Prov:CHLOE SEN MD 05/23/20 Albuterol Sulfate (VENTOLIN MDI) 90 Mcg Ih, 180 MCG IN TIDPRN PRN, #1 INHALER Prov:CHLOE SEN MD 05/23/20 Reported Medications Citalopram Hydrobromide (Citalopram Hydrobromide) 40 Mg Tab, 40 MG PO DAILY for 30 Days, MG 06/07/24 Atorvastatin Calcium (ATORVASTATIN CALCIUM) 20 Mg Tab, 1 TAB PO HS, #30 TAB 5 Refills 06/07/24 Losartan Potassium (Losartan Potassium) 100 Mg Tab, 100 MG PO DAILY for 30 Days, MG 06/07/24 Labetalol Hcl (Labetalol Hcl) 200 Mg Tab, 200 MG PO BID for 30 Days, MG 06/07/24 Aspirin (Aspir-Low) 81 Mg Tab, 81 MG PO DAILY for 30 Days, MG 06/07/24 Levothyroxine Sodium (Levothyroxine Sodium) 150 Mcg Tab, 150 MCG PO QAM for 30 Days 07/31/19 Citalopram Hydrobromide (Citalopram Hydrobromide) 40 Mg Tab, 1 TAB PO DAILY 12/06/18 Information Source: Patient Mode of Arrival: Ambulatory Severity: Moderate Timing: Weeks Duration: Since onset Prehospital treatment: None Past Medical History PAST MEDICAL HISTORY: Anxiety, CVA, High Lipids, HTN, Thyroid Surgical History: BTL, Hernia Repair, Tubal Ligation Surgical History (Other): knee sx, shoulder sx LINEMAN History: No Pertinent LINEMAN History Family History Family History: Reviewed,noncontributory to illness, Unknown Social History Smoker: Non-Smoker Alcohol: Rarely Drugs: Denies Drug Use Lives In: Home Constitutional: reports: weakness; denies: chills, diaphoresis, fatigue, fever, malaise, sweats, others EENTM: denies: blurred vision, double vision, ear bleeding, ear discharge, ear drainage, ear pain, ear ringing, eye pain, eye redness, hearing loss, mouth pain, mouth swelling, nasal discharge, nose bleeding, nose congestion, nose pain, photophobia, tearing, throat pain, throat swelling, voice changes, others Respiratory: denies: cough, hemoptysis, orthopnea, SOB at rest, shortness of breath, SOB with excertion, stridor, wheezing, others Cardiovascular: reports: chest pain; denies: dizzy spells, diaphoresis, Dyspnea on exertion, edema, irregular heart beat, left arm pain, lightheadedness, palpitations, PND, syncope, others Gastrointestinal: reports: diarrhea; denies: abdomen distended, abdominal pain, blood streaked bowels, constipated, dysphagia, difficulty swallowing, hematemesis, melena, nausea, poor appetite, poor fluid intake, rectal bleeding, rectal pain, vomiting, others Genitourinary: denies: abnormal vagina bleeding, burning, dyspareunia, dysuria, flank pain, frequency, hematuria, incontinence, pain, , vagina discharge, urgency, others Neurological: reports: dizziness; denies: fainting, headache, left sided numbness, left sided weakness, numbness, paresthesia, pre-existing deficit, right sided numbness, right sided weakness, seizure, speech problems, tingling, tremors, weakness, others Musculoskeletal: denies: back pain, gout, joint pain, joint swelling, muscle pa in, muscle stiffness, neck pain, others Integumetry: denies: bruises, change in color, change in hair/nails, dryness, laceration, lesions, lumps, rash, wounds, others Allergic/Immunocompromised: denies: Difficulty Healing, Frequent Infections, Hives, Itching, others Hematologic/Lymphatic: denies: anemia, blood clots, easy bleeding, easy bruising, swollen glands, others Endocrine: denies: excessive hunger, excessive sweating, excessive thirst, excessive urination, flushing, intolerance to cold, intolerance to heat, unexplained weight gain, unexplained weight loss, others Psychiatric: denies: anxiety, bipolar disorder, depression, hopeless, panic disorder, schizophrenia, sleepless, suicidal, others All Other Systems: Reviewed and Negative Physical Exam General Appearance: Moderate Distress HEENT: Pale Conjuntivae (L), Pale Conjuntivae (R), Pharynx Normal, TMs Normal Neck: Full Range of Motion, Non-Tender, Normal, Normal Inspection Respiratory: Chest Non-Tender, Lungs Clear, No Accessory Muscle Use, No Respiratory Distress, Normal Breath Sounds Cardiovascular: No Edema, No JVD, No Murmur, No Gallop, Normal Peripheral Pulses, Regular Rate/Rhythm Breast Exam: Deferred Gastrointestinal: No Organomegaly, Non Tender, No Pulsatile Mass, Normal Bowel Sounds, Soft Genitalia: Deferred Pelvic: Deferred Rectal: Deferred Extremities: No calf tenderness, Normal capillary refill, Normal inspection, N ormal range of motion, Non-tender, No pedal edema Musculoskeletal : Apperance: Normal Neurologic: pasteurizer II-XII nml as Tested, Motor Weakness, Normal Affect, Normal Mood, No Sensory Deficits Cerebellar Function: Normal Reflexes: Normal Skin: Dry, Pallor, Warm Lymphatic: No Adenopathy Was a procedure done? Was a procedure done?: No Differential Dx Considerations may include: Generalized weakness, electrolyte imbalance, dehydration X-Ray, Labs, Meds, VS Vital Signs Date Time Temp Pulse Resp B/P (MAP) Pulse Ox O2 Delivery O2 Flow Rate FiO2 05/19/25 15:48 98.4 75 16 161/87 (111) 97 98.4 05/19/25 13:21 97.6 73 16 171/93 96 97.6 Lab Test 05/19/25 15:05 05/19/25 14:57 05/19/25 14:40 05/19/25 14:01 Range/Units SARS-CoV-2 Antigen (Rapid) Pending Troponin I High Sensitivity < 3 L < 3 L </=34 ng/L Urine Color Yellow Yellow Urine Clarity Clear Clear Urine pH 6.0 5.0-9.0 Urine Specific [place] 1.015 1.001-1.035 Urine Protein Negative Negative Urine Ketones Negative Negative Urine Blood Negative Negative /uL Urine Nitrite Negative Negative Urine Bilirubin Negative Negative Urine Urobilinogen Normal Negative mg/dL Urine Leukocyte Esterase 1+ Negative /uL Urine RBC 1 0 - 4 /hpf Urine Microscopic WBC 4 0-5 /HPF Urine Squamous Epithelial Cells Few <5 /hpf Urine Bacteria None seen None Seen /hpf Urine Mucus Few None Seen Urine Glucose Normal Normal mg/dL White Blood Count 6.7 4.4-10.8 10^3/uL Red Blood Count 4.35 4.0-5.20 10^6/uL Hemoglobin 12.7 12.2-16.2 g/dL Hematocrit 37.3 36.0-46.0 % Mean Corpuscular Volume 85.7 80.0-100.0 fL Mean Corpuscular Hemoglobin 29.2 28.0-32.0 pg Mean Corpuscular Hemoglobin Concent 34.1 32.0-36.0 g/dL Red Cell Distribution Width 13.5 11.8-14.3 % Platelet Count 306 140-450 10^3/uL Mean Platelet Volume 6.2 L 6.9-10.8 fL Neutrophils (%) (Auto) 60.1 37.0-80.0 % Lymphocytes (%) (Auto) 28.2 10.0-50.0 % Monocytes (%) (Auto) 5.8 0.0-12.0 % Eosinophils (%) (Auto) 5.2 0.0-7.0 % Basophils (%) (Auto) 0.7 0.0-2.0 % Neutrophils # (Auto) 4.0 1.6-8.6 10 ^3/uL Lymphocytes # (Auto) 1.9 0.4-5.4 10 ^3/uL Monocytes # (Auto) 0.4 0-1.3 10 ^3/uL Eosinophils # (Auto) 0.3 0-0.8 10 ^3/uL Basophils # (Auto) 0 0-0.2 10 ^3/uL Nucleated Red Blood Cells 0.0 % Sodium Level 141 136-145 mmol/L Potassium Level 4.2 3.5-5.1 mmol/L Chloride Level 103 98-107 mmol/L Carbon Dioxide Level 28 20-31 mmol/L Anion Gap 10 5-15 Blood Urea Nitrogen 10 9-23 mg/dL Creatinine 0.86 0.550-1.02 mg/dL Glomerular Filtration Rate Calc 71 >90 mL/min BUN/Creatinine Ratio 11.6 10.0-20.0 Serum Glucose 101 74-106 mg/dL Calcium Level 9.3 8.7-10.4 mg/dL This CBCs within normal limits. The chemistry panel is within normal limits. The urine test is positive for UTI At this time, the patient has been admitted with the autonomic dysfunction The patient was given normal saline The patient was given Rocephin IV piggyback Images Reviewed?: Images reviewed and evaluated by me Time of 1ST Reevaluation: 14:15 Reevaluation 1ST: Unchanged Patient Education/Counseling: Diagnosis, Treatment, Prognosis Family Education/Counseling: No Family Present SEPSIS Sepsis Screen Date sepsis recognized/suspect: May 19, 2025 Time Sepsis recognized/suspect: 1324 Recent Procedure: No On Antibiotic Therapy: No Respiratory Rate >20: No Heart Rate >90: No Temp<36 C (96.8 F) or >38.3 C: No SBP <90 or MAP <65 mmHG: No New Acute Mental Status Change: No Is the patient on CPAP, BIPAP,: No Physician Orders Chest Two Views Routine (05/19/25 13:44) Heplock Iv (05/19/25 13:44) Snow Groomer (05/19/25 13:44) Blood Pressure (05/19/25 13:44) Pulse Oximetry (05/19/25 13:44) Electrocardigram (05/19/25 13:44) Covid19 Antigen Marissa (05/19/25 ) Troponin-I Hs (05/19/25 16:44) Electrocardigram (05/19/25 14:44) Electrocardigram (05/19/25 16:44) Aspirin Chewable Tablet (05/20/25 10:00) Atorvastatin (Lipitor) (05/19/25 22:00) Hydralazine Injection (Apresoline Inject (05/19/25 14:45) Losartan Tablet (Cozaar Tablet) (05/20/25 10:00) Amlodipine Tablet (Norvasc Tablet) (05/20/25 10:00) Albuterol Medneb (Ventolin Medneb) (05/19/25 14:45) Allergies (05/19/25 14:32) Code Status (05/19/25 14:32) Sodium Chloride Lock (Saline Lock Ns) (05/19/25 22:00) Oxygen Per Hour (05/19/25 14:32) Hydrocodone-Acet 5/325mg Tab ([place] 32 (05/19/25 14:45) Ondansetron Hcl (Zofran) (05/19/25 14:45) Docusate Sodium Capsule (Colace Capsule) (05/19/25 14:45) Fall Risk Precautions In Place QSHIFT (05/19/25 14:32) Complete Blood Count (05/20/25 04:00) Comprehensive Metabolic Panel (05/20/25 04:00) Cardiac Diet-2gna,Lofat,Lochol (05/19/25 Dinner) Condition: Serious (05/19/25 14:32) Acetaminophen Tablet (Tylenol Tablet) (05/19/25 14:45) Maintain Bed Rest (05/19/25 14:32) Sequential Compression Device (05/19/25 ) Vital Signs Date Time Temp Pulse Resp B/P (MAP) Pulse Ox O2 Delivery O2 Flow Rate FiO2 05/19/25 15:48 98.4 75 16 161/87 (111) 97 98.4 05/19/25 13:21 97.6 73 16 171/93 96 97.6 Laboratory Tests Test 05/19/25 14:01 White Blood Count 6.7 10^3/uL (4.4-10.8) Departure 1 Departure Time of Disposition: 16:00 Impression: Primary Impression: Generalized weakness Additional Impressions: Autonomic dysfunction UTI (urinary tract infection) Qualified Codes: N30.00 - Acute cystitis without hematuria Disposition: ADMITTED INPATIENT Admit to: Med Surg Condition: Fair Critical Care Note Critical Care Time?: No Stability Stability form required: Yes Unstable for transfer: Telemetry monitoring (Telemetry monitoring required), ED Physician Assesment (Clinical assesment) Heart Score Heart Score: Heart Score Response (Comments) Value History N/A 0 EKG N/A 0 Age N/A 0 Risk Factors N/A 0 Troponin N/A 0 Total 0 I personally scribed for LAXMI HERNANDEZ MD ([email or web address]) on 05/19/25 at 13:49. Elec tronically submitted by Lui Zuñiga ([email or web address]). LAXMI HERNANDEZ MD May 19, 2025 13:49
[2025-05-19 14:17] LABS: Hematocrit 37.3 % (36.0-46.0); Hemoglobin 12.7 g/dL (12.2-16.2); Mean Corpuscular Hemoglobin 29.2 pg (28.0-32.0); Mean Corpuscular Volume 85.7 fL (80.0-100.0); Nucleated Red Blood Cells % 0.0 %
--- NOTE | 2025-05-19 14:20 | DVH ---
History: WEAKNESS Comparison: CT CT ANGIO CHEST CONTRAST on DOS: 10/02/24, XY CHEST PORTABLE on DOS: 10/01/24, XY CHEST PORTABLE on DOS: 06/06/24, XY CHEST XRAY 1 VIEW on DOS: 08/14/23, XY CHEST TWO VIEWS ROUTINE on DOS: 06/01/23 Procedure Comments: 2 views of the chest. Findings: The lung parenchyma is clear. No pleural effusion. Cardiac silhouette is enlarged. Right shoulder arthroplasty hardware. IMPRESSION: 1. No acute cardiopulmonary disease.
[2025-05-19 14:24] LABS: Chloride 103 mmol/L (98-107); Potassium 4.2 mmol/L (3.5-5.1); Sodium 141 mmol/L (136-145)
[2025-05-19 14:25] LABS: Anion Gap 10 (5-15); Calcium 9.3 mg/dL (8.7-10.4); Carbon Dioxide 28 mmol/L (20-31)
[2025-05-19 14:30] LABS: BUN/Creatinine Ratio 11.6 (10.0-20.0); Blood Urea Nitrogen 10 mg/dL (9-23); Glucose 101 mg/dL (74-106)
[2025-05-19] MEDS ORDERED: DOCUSATE SOD 100 MG CAP PO PRN (14:45)
[2025-05-19] MEDS ORDERED: ONDANSETRON HCL 4 MG/2 ML VIAL IV PRN (14:45)
[2025-05-19] MEDS ORDERED: hydrALAZINE HCL 20 MG/ML VL IV PRN (14:45)
[2025-05-19] MEDS ORDERED: ACETAMINOPHEN 325 MG TAB PO PRN (14:45)
[2025-05-19 15:31] LABS: Urine Protein, UAD Negative (Negative)
[2025-05-19 16:02] LABS: COVID19 ANTIGEN SOFIA FIA NEGATIVE (NEGATIVE)
--- NOTE | 2025-05-19 16:29 | DVHHP2 ---
History of Present Illness Reason for Visit: Generalized weakness History of Present Illness The patient is a 75-year-old female with past medical history of CVA, anxiety, hyperlipidemia, hypothyroidism, and hypertension who presented to [facility] ED with complaint of generalized weakness. Patient reports she has been experiencing generalized weakness associated with dizziness, chest tightness, and diarrhea for the past 2 weeks. Patient was seen and evaluated in the ED, laboratory data shows WBC 8.7, platelets 306, sodium 141, potassium 4.2, BUN 10, creatinine 0.86, GFR 71, glucose 101, calcium 9.3, troponin three, blood pressure 171/93 trending down to 160/88, heart rate 73, temperature 97.6 F, O2 saturation 96% on room air. Urinalysis positive for urinary tract infection. Chest x-ray show no acute cardiopulmonary disease. Please see medication orders section in the computer. On my assessment, patient denied chest pain, no dizziness, headache, diaphoresis, shortness of breaths, no diarrhea, nausea, vomiting, fever, no chills. Patient was admitted for further evaluation and medical management. Past Medical History Anxiety, CVA, High Lipids, HTN, Thyroid Past Surgical History BTL, Hernia Repair, Tubal Ligation, Knee and shoulder surgery Family History Reviewed, noncontributory to the management of this case. Past Social History The patient lives at home, denies smoking, alcohol or illicit drugs abuse. Review of Systems Constitutional: Yes: Weakness; No: Fever, Chills, Sweats, Malaise, Other Eyes: No: Pain, Vision change, Conjunctivae inflammation, Eyelid inflammation, Other, Redness ENT: No: Ear pain, Ear discharge, Nose pain, Nose discharge, Nose congestion, Mouth pain, Mouth swelling, Throat pain, Throat swelling, Other Respiratory: No: Cough, Dry, Shortness of breath, SOB with excertion, Wheezing, Hemoptysis, Pleuritic Pain, Sputum, Wheezing, Other Cardiovascular: Chest Pain; No: Palpitations, Orthopnea, Paroxysmal Noc. Dyspnea, Edema, Lt Headedness, Other Gastrointestinal: Diarrhea; No: Nausea, Vomiting, Abdominal Pain, Constipation, Melena, Hematochezia, Other Genitourinary: No Dysuria, No Frequency, No Incontinence, No Hematuria, No Retention, No Other Musculoskeletal: No: other, neck pain, shoulder pain, arm pain, back pain, hand pain, leg pain, foot pain Skin: No: Rash, Lesions, Jaundice, Bruising, Other Neurological: Other (Dizziness); No: Weakness, Numbness, Incoordination, Change in speech, Confusion, Seizures Allergies: Coded Allergies: Sulfa Antibiotics (Verified Allergy, Unknown, 07/31/19) Medications Current Medications Medications Dose Ordered Sig/Sorin Route Start Time Stop Time Status Last Admin Dose Admin Aspirin 81 mg DAILY PO 05/20/25 10:00 Atorvastatin Calcium 20 mg HS PO 05/19/25 22:00 Hydralazine HCl 10 mg Q6HP PRN IV 05/19/25 14:45 Losartan Potassium 75 mg DAILY PO 05/20/25 10:00 Amlodipine Besylate 5 mg DAILY PO 05/20/25 10:00 Albuterol 2.5 mg Q4HPRN PRN NEB 05/19/25 14:45 Sodium Chloride 10 ml Q8HR IV 05/19/25 22:00 Acetaminophen/ Hydrocodone Bitart 1 tab Q4HP PRN PO 05/19/25 14:45 Ondansetron HCl 4 mg Q4HP PRN IV 05/19/25 14:45 Docusate Sodium 100 mg BIDPRN PRN PO 05/19/25 14:45 Acetaminophen 650 mg Q6HP PRN PO 05/19/25 14:45 Exam Vital Signs Vital Signs Date Time Temp Pulse Resp B/P (MAP) Pulse Ox O2 Delivery O2 Flow Rate FiO2 05/19/25 15:48 98.4 75 16 161/87 (111) 97 98.4 General Appearance: Alert, Oriented X3, Cooperative, No acute distress HEENT: Atraumatic, PERRLA, EOMI, Mucous membr. moist/pink Respiratory: Normal air movement Cardiovascular: Regular rate, Normal S1, Normal S2, No murmurs Abdominal: Normal bowel sounds, Soft, No tenderness, No hepatospenomegaly, No masses Extremities: No clubbing, No cyanosis, No edema, Normal pulses, No tenderness/swelling Skin: No rashes, No significant lesion Neuro: Normal speech, Normal tone, Sensation intact, Cranial nerves 3-12 NL, Reflexes 2+, Other (Generalized weakness) Psych/Mental Status: Mental status NL, Mood NL Labs/Xrays Labs Test 05/19/25 15:05 05/19/25 14:57 05/19/25 14:40 05/19/25 14:01 Range/Units SARS-CoV-2 Antigen (Rapid) Negative NEGATIVE Troponin I High Sensitivity < 3 L </=34 ng/L Urine Color Yellow Yellow Urine Clarity Clear Clear Urine pH 6.0 5.0-9.0 Urine Specific [place] 1.015 1.001-1.035 Urine Protein Negative Negative Urine Ketones Negative Negative Urine Blood Negative Negative /uL Urine Nitrite Negative Negative Urine Bilirubin Negative Negative Urine Urobilinogen Normal Negative mg/dL Urine Leukocyte Esterase 1+ Negative /uL Urine RBC 1 0 - 4 /hpf Urine Microscopic WBC 4 0-5 /HPF Urine Squamous Epithelial Cells Few <5 /hpf Urine Bacteria None seen None Seen /hpf Urine Mucus Few None Seen Urine Glucose Normal Normal mg/dL White Blood Count 6.7 4.4-10.8 10^3/uL Red Blood Count 4.35 4.0-5.20 10^6/uL Hemoglobin 12.7 12.2-16.2 g/dL Hematocrit 37.3 36.0-46.0 % Mean Corpuscular Volume 85.7 80.0-100.0 fL Mean Corpuscular Hemoglobin 29.2 28.0-32.0 pg Mean Corpuscular Hemoglobin Concent 34.1 32.0-36.0 g/dL Red Cell Distribution Width 13.5 11.8-14.3 % Platelet Count 306 140-450 10^3/uL Mean Platelet Volume 6.2 L 6.9-10.8 fL Neutrophils (%) (Auto) 60.1 37.0-80.0 % Lymphocytes (%) (Auto) 28.2 10.0-50.0 % Monocytes (%) (Auto) 5.8 0.0-12.0 % Eosinophils (%) (Auto) 5.2 0.0-7.0 % Basophils (%) (Auto) 0.7 0.0-2.0 % Neutrophils # (Auto) 4.0 1.6-8.6 10 ^3/uL Lymphocytes # (Auto) 1.9 0.4-5.4 10 ^3/uL Monocytes # (Auto) 0.4 0-1.3 10 ^3/uL Eosinophils # (Auto) 0.3 0-0.8 10 ^3/uL Basophils # (Auto) 0 0-0.2 10 ^3/uL Nucleated Red Blood Cells 0.0 % Sodium Level 141 136-145 mmol/L Potassium Level 4.2 3.5-5.1 mmol/L Chloride Level 103 98-107 mmol/L Carbon Dioxide Level 28 20-31 mmol/L Anion Gap 10 5-15 Blood Urea Nitrogen 10 9-23 mg/dL Creatinine 0.86 0.550-1.02 mg/dL Glomerular Filtration Rate Calc 71 >90 mL/min BUN/Creatinine Ratio 11.6 10.0-20.0 Serum Glucose 101 74-106 mg/dL Calcium Level 9.3 8.7-10.4 mg/dL PATIENT: ELIZABET REYES DIANEACCT: [id number] UNIT: [id number] : 1950 LOC: ER ROOM / BED: / AGE / SEX: 75 / F ADM STATUS: REG ER SERVICE 1344 ORDERING PHYSICIAN: LAXMI HERNANDEZ MD PROCEDURE(s): CXR2 - CHEST TWO VIEWS ROUTINE REASON: WEAKNESS ORDER NUMBER(s): [id number], ACCESSION NUMBER(s): [id number] History: WEAKNESS Comparison: CT CT ANGIO CHEST CONTRAST on DOS: 10/02/24, XY CHEST PORTABLE on DOS: 10/01/24, XY CHEST PORTABLE on DOS: 06/06/24, XY CHEST XRAY 1 VIEW on DOS: 08/14/23, XY CHEST TWO VIEWS ROUTINE on DOS: 06/01/23 Procedure Comments: 2 views of the chest. Findings: The lung parenchyma is clear. No pleural effusion. Cardiac silhouette is enlarged. Right shoulder arthroplasty hardware. IMPRESSION: 1. No acute cardiopulmonary disease. SEPSIS Sepsis Screen Date sepsis recognized/suspect: May 19, 2025 Time Sepsis recognized/suspect: 1324 Recent Procedure: No On Antibiotic Therapy: No Respiratory Rate >20: No Heart Rate >90: No Temp<36 C (96.8 F) or >38.3 C: No SBP <90 or MAP <65 mmHG: No New Acute Mental Status Change: No Is the patient on CPAP, BIPAP,: No Physician Orders Chest Two Views Routine (05/19/25 13:44) Heplock Iv (05/19/25 13:44) Test Lead (05/19/25 13:44) Blood Pressure (05/19/25 13:44) Pulse Oximetry (05/19/25 13:44) Electrocardigram (05/19/25 13:44) Troponin-I Hs (05/19/25 16:44) Electrocardigram (05/19/25 14:44) Electrocardigram (05/19/25 16:44) Aspirin Chewable Tablet (05/20/25 10:00) Atorvastatin (Lipitor) (05/19/25 22:00) Hydralazine Injection (Apresoline Inject (05/19/25 14:45) Losartan Tablet (Cozaar Tablet) (05/20/25 10:00) Amlodipine Tablet (Norvasc Tablet) (05/20/25 10:00) Albuterol Medneb (Ventolin Medneb) (05/19/25 14:45) Allergies (05/19/25 14:32) Code Status (05/19/25 14:32) Sodium Chloride Lock (Saline Lock Ns) (05/19/25 22:00) Oxygen Per Hour (05/19/25 14:32) Hydrocodone-Acet 5/325mg Tab ([place] /32 (05/19/25 14:45) Ondansetron Hcl (Zofran) (05/19/25 14:45) Docusate Sodium Capsule (Colace Capsule) (05/19/25 14:45) Fall Risk Precautions In Place QSHIFT (05/19/25 14:32) Complete Blood Count (05/20/25 04:00) Comprehensive Metabolic Panel (05/20/25 04:00) Cardiac Diet-2gna,Lofat,Lochol (05/19/25 Dinner) Condition: Serious (05/19/25 14:32) Acetaminophen Tablet (Tylenol Tablet) (05/19/25 14:45) Maintain Bed Rest (05/19/25 14:32) Sequential Compression Device (05/19/25 ) Ceftriaxone 1gm/50ml (Rocephin) (05/19/25 16:15) Vital Signs Date Time Temp Pulse Resp B/P (MAP) Pulse Ox O2 Delivery O2 Flow Rate FiO2 05/19/25 15:48 98.4 75 16 161/87 (111) 97 98.4 05/19/25 13:21 97.6 73 16 171/93 96 97.6 Laboratory Tests Test 05/19/25 14:01 White Blood Count 6.7 10^3/uL (4.4-10.8) Assessment/Plan Assessment/Plan Generalized weakness Hypertensive urgency Urinary tract infection Autonomic dysfunction Plan 1. Admit to telemetry unit 2. Breathing treatment 3. Pain control management 4. IV antibiotic management 5. Management of fluids and electrolytes 6. Consultation for hospitalist 7. Diagnostic test chest x-ray 8. DVT prophylaxis on aspirin 9. Repeat labs CBC, CMP in a.m. 10. Home medication reviewed and reconciled 11. Continue with current medical management 12. Treatment plan discussed with patient and RN. Patient verbalized understanding. Plan discussed with: Patient, Other (RN) My Orders Orders - JUAN LEDEZMA DNP Procedure Category Date Status Time Aspirin Chewable PHA 05/20/25 In Process Tablet 10:00 Atorvastatin (Lipitor) PHA 05/19/25 In Process 22:00 Hydralazine Injection PHA 05/19/25 In Process (Apresoline Inject 14:45 Losartan Tablet PHA 05/20/25 In Process (Cozaar Tablet) 10:00 Amlodipine Tablet PHA 05/20/25 In Process (Norvasc Tablet) 10:00 Albuterol Medneb PHA 05/19/25 In Process (Ventolin Medneb) 14:45 Allergies GRAZYNA 05/19/25 In Process 14:32 Code Status CODE 05/19/25 Transmitted 14:32 Sodium Chloride Lock PHA 05/19/25 In Process (Saline Lock Ns) 22:00 Oxygen Per Hour RT 05/19/25 Transmitted 14:32 Hydrocodone-Acet PHA 05/19/25 In Process 5/325mg Tab ([place] 14:45 Ondansetron Hcl PHA 05/19/25 In Process (Zofran) 14:45 Docusate Sodium PHA 05/19/25 In Process Capsule (Colace 14:45 Fall Risk Precautions GRAZYNA 05/19/[address] 14:32 Complete Blood Count LAB 05/20/25 Verified 04:00 Comprehensive LAB 05/20/25 Verified Metabolic Panel 04:00 Cardiac DIET 05/19/25 Transmitted Diet-2gna,Lofat,Lochol Dinner Condition: Serious GRAZYNA 05/19/25 In Process 14:32 Acetaminophen Tablet PHA 05/19/25 In Process (Tylenol Tablet) 14:45 Maintain Bed Rest GRAZYNA 12/3/25 In Process 14:32 Sequential GRAZYNA 05/19/25 In Process Compression Device Problem List: (1) Generalized weakness (2) Hypertensive urgency (3) UTI (urinary tract infection) (4) Autonomic dysfunction Date of Service: May 19, 2025 Billing Provider: JUAN LEDEZMA DNP Common Visit Codes: [id number] INP/OBS CARE (HIGH) JUAN LEDEZMA DNP May 19, 2025 16:29
[2025-05-19] MEDS ORDERED: MORPHINE SULFATE INJ 2 MG/ml SYRG IV PRN (16:30)
[2025-05-19] MEDS ORDERED: NITROGLYCERIN 0.4 MG SL TAB SL PRN (16:30)
[2025-05-19] MEDS: ALBUTEROL SULF 2.5 MG/0.5ML(0.5%) NEB SOLN NEB PRN (18:24)
[2025-05-19] MEDS: SODIUM CHLORIDE 0.9% 500 ML IV ONE (20:56)
[2025-05-19] MEDS ORDERED: OMEP20TA PO (21:58)
[2025-05-19] MEDS: ATORVASTATIN 20 MG TAB PO SCH (22:06)
[2025-05-19] MEDS: SODIUM CHLOR 0.9% PF (SALINE LOCK) 10ML VIAL/SYR IV SCH (22:11)
[2025-05-19] MEDS: HYDROcodone-ACET 5/325MG TAB PO PRN (22:11)
[2025-05-20] VITALS (13 sets, daily range): BP systolic 132–157; BP diastolic 69–76; PULSE 65–74; RESP 16–18; TEMP 96.8–98.2; O2SAT 94–98
[2025-05-20 05:24] LABS: Hematocrit 34.4 % (36.0-46.0); Hemoglobin 11.9 g/dL (12.2-16.2); Mean Corpuscular Hemoglobin 29.4 pg (28.0-32.0); Mean Corpuscular Volume 85.2 fL (80.0-100.0); Nucleated Red Blood Cells % 0.0 %
[2025-05-20 05:36] LABS: Alanine Aminotransferase 21 U/L (7-40); Albumin 3.7 g/dL (3.2-4.8); Alkaline Phosphatase 83 U/L (46-116); Anion Gap 9 (5-15); BUN/Creatinine Ratio 12.2 (10.0-20.0); Blood Urea Nitrogen 10 mg/dL (9-23); Calcium 9.2 mg/dL (8.7-10.4); Carbon Dioxide 28 mmol/L (20-31); Chloride 106 mmol/L (98-107); Glucose 99 mg/dL (74-106); Potassium 3.6 mmol/L (3.5-5.1); Sodium 143 mmol/L (136-145)
[2025-05-20 05:37] LABS: Bilirubin, Total 0.8 mg/dL (0.2-1.0)
[2025-05-20 05:41] LABS: Total Protein 5.6 g/dL (5.7-8.2)
[2025-05-20] MEDS: LOSARTAN POTASSIUM 25 MG TAB PO SCH (10:34)
--- NOTE | 2025-05-20 15:49 | DVHPN2 ---
Subjective Patient reporting having chest pain that radiates to her back. Also reports having left calf cramping. Reviewed: Care Plan, H&P, Labs, Medications Changes from previous H/P or p: No Changes General: Per HPI Eyes: No Pain, No Vision change, No Conjunctivae inflammation, No Eyelid inflammation, No Other, No Redness ENT: No Ear pain, No Ear discharge, No Nose pain, No Nose discharge, No Nose congestion, No Mouth pain, No Mouth swelling, No Throat pain, No Throat swelling, No Other Cardiovascular: Chest Pain; No Palpitations, No Orthopnea, No Paroxysmal Noc. Dyspnea, No Edema, No Lt Headedness, No Other Respiratory: No Cough, No Dry, No Shortness of breath, No SOB with excertion, No Wheezing, No Hemoptysis, No Pleuritic Pain, No Sputum, No Other Gastrointestinal: No Nausea, No Vomiting, No Abdominal Pain; Diarrhea; No Constipation, No Melena, No Hematochezia, No Other Genitourinary: No Dysuria, No Frequency, No Incontinence, No Hematuria, No Retention, No Other Musculoskeletal: No other, No neck pain, No shoulder pain, No arm pain, No back pain, No hand pain, No leg pain, No foot pain Skin: No Rash, No Lesions, No Jaundice, No Bruising, No Other Objective Vitals Vital Signs Date Time Temp Pulse Resp B/P (MAP) Pulse Ox O2 Delivery O2 Flow Rate FiO2 05/20/25 13:00 96.8 65 18 143/69 (93) 94 96.8 05/20/25 10:56 Room Air* 0 21 Intake/Output Intake and Output 05/20/25 07:00 Intake Total 350 ml Balance 350 ml Intake Oral 350 ml # Voids 2 General Appearance: Alert, Oriented X3, Cooperative, No acute distress HEENT: Atraumatic, PERRLA Lungs: Clear to auscultation, Normal air movement Cardiovascular: Normal S1, Normal S2 Abdomen: Normal bowel sounds, Soft, No tenderness Genitourinary: No Apparent Abnormalities Musculoskeletal: Normal sensory function, Normal motor function Skin: Dry, Intact Psych/Mental Status: Mental status NL, Mood NL Medications Current Medications Medications Dose Ordered Sig/Sorin Route Start Time Stop Time Status Last Admin Dose Admin Aspirin 81 mg DAILY PO 05/20/25 10:00 05/20/25 10:35 81 MG Atorvastatin Calcium 20 mg HS PO 05/19/25 22:00 05/19/25 22:06 20 MG Hydralazine HCl 10 mg Q6HP PRN IV 05/19/25 14:45 Losartan Potassium 75 mg DAILY PO 05/20/25 10:00 05/20/25 10:34 75 MG Amlodipine Besylate 5 mg DAILY PO 05/20/25 10:00 05/20/25 10:35 5 MG Albuterol 2.5 mg Q4HPRN PRN NEB 05/19/25 14:45 05/20/25 10:56 2.5 MG Sodium Chloride 10 ml Q8HR IV 05/19/25 22:00 05/20/25 14:09 10 ML Acetaminophen/ Hydrocodone Bitart 1 tab Q4HP PRN PO 05/19/25 14:45 05/20/25 10:35 1 TAB Ondansetron HCl 4 mg Q4HP PRN IV 05/19/25 14:45 Docusate Sodium 100 mg BIDPRN PRN PO 05/19/25 14:45 Acetaminophen 650 mg Q6HP PRN PO 05/19/25 14:45 Ceftriaxone Sodium 50 ml @ 100 mls/hr DAILY@09 IV 05/20/25 09:00 05/20/25 10:36 100 MLS/HR Nitroglycerin 0.4 mg Q5MINP PRN SL 05/19/25 16:30 Morphine Sulfate 2 mg Q30M PRN IV 05/19/25 16:30 Laboratory Results Laboratory Tests 05/20/25 04:43 Chemistry Test 05/20/25 04:43 Albumin 3.7 g/dL (3.2-4.8) Calcium Level 9.2 mg/dL (8.7-10.4) Total Protein 5.6 g/dL (5.7-8.2) L LFT Test 05/20/25 04:43 Alanine Aminotransferase (ALT) 21 U/L (7-40) Alkaline Phosphatase 83 U/L (46-116) Aspartate Amino Transferase (AST) 22 U/L (13-40) Total Bilirubin 0.8 mg/dL (0.2-1.0) HgA1c, TSH Test 05/20/25 04:43 Thyroid Stimulating Hormone (TSH) 5.08 uIU/mL (0.55-4.78) H Urinalysis Test 05/19/25 14:40 Urine Color Yellow (Yellow) Urine Clarity Clear (Clear) Urine pH 6.0 (5.0-9.0) Urine Specific [place] 1.015 (1.001-1.035) Urine Protein Negative (Negative) Urine Ketones Negative (Negative) Urine Blood Negative /uL (Negative) Urine Nitrite Negative (Negative) Urine Bilirubin Negative (Negative) Urine Urobilinogen Normal mg/dL (Negative) Urine Leukocyte Esterase 1+ /uL (Negative) Urine RBC 1 /hpf (0 - 4) Urine Microscopic WBC 4 /HPF (0-5) Urine Squamous Epithelial Cells Few /hpf (<5) Urine Bacteria None seen /hpf (None Seen) Urine Mucus Few (None Seen) Urine Glucose Normal mg/dL (Normal) Labs and/or images reviewed: Labs reviewed by me, Image(s) reviewed by me Assessment/Plan Assessment/Plan Impression: -generalized weakness -hypothyroidism -rule out DVT/PE -abdominal pain, unspecific Plan: -check D-dimer, DVT study of lower extremity -consider CT angiogram of the chest if D-dimer is elevated Total time spent with patient discussing and formulating plan of care: 35 minutes. This medical document was created using an electronic medical record system with [employer] dictation system. Although this document has been carefully reviewed, there may still be some phonetic and typographical errors. These areas are purely typographical due to imperfections of the software programs, and do not reflect any compromise in the patient's medical care. Plan discussed with: Patient, Other (RN) My Orders Orders - MIKAL BARDALES NP Procedure Category Date Status Time Echo 2d Mode Cardiac US 05/20/25 Logged DOP 15:17 Electrocardigram EKG 05/20/25 Logged 15:17 D-Dimer LAB 05/20/25 Logged 15:17 Bilat Lower Dvt US 05/20/25 Logged 15:17 Date of Service: May 20, 2025 Billing Provider: MIKAL BARDALES NP Common Visit Codes: [id number] INP/OBS CARE(HIGH) MIKAL BARDALES NP May 20, 2025 15:49
--- NOTE | 2025-05-20 16:48 | DVH ---
Bilateral lower extremity venous duplex Clinical History: BILATERAL LOWER LEG PAIN Comparison: US BILAT LOWER DVT on DOS: 08/14/23 Technique: Duplex Doppler evaluation of the deep venous systems of both lower extremities from the common femoral veins to the popliteal veins including color Doppler and spectral/pulsed waveform analysis was performed. Findings: RIGHT SIDE: The common femoral vein demonstrates appropriate compressibility and waveform variability. There is compressibility/patency of the great saphenous vein at the proximal thigh. The femoral vein demonstrates appropriate compressibility and waveform variability. The deep femoral vein demonstrates appropriate compressibility and waveform variability. The popliteal vein demonstrates appropriate compressibility and waveform variability. There is normal compressibility at the tibioperoneal trunk. LEFT SIDE: The common femoral vein demonstrates appropriate compressibility and waveform variability. There is compressibility/patency of the great saphenous vein at the proximal thigh. The femoral vein demonstrates appropriate compressibility and waveform variability. The deep femoral vein demonstrates appropriate compressibility and waveform variability. The popliteal vein demonstrates appropriate compressibility and waveform variability. There is normal compressibility at the tibioperoneal trunk. Impression: 1. No right or left femoropopliteal venous thrombosis.
[2025-05-21] VITALS (9 sets, daily range): BP systolic 135–151; BP diastolic 72–84; PULSE 72–85; RESP 16–20; TEMP 97.2–98.7; O2SAT 95–99
--- NOTE | 2025-05-21 09:20 | DVHPN2 ---
Subjective Patient has complaints of back pain. Reviewed: Care Plan, H&P, Labs, Medications Changes from previous H/P or p: No Changes General: Per HPI Eyes: No Pain, No Vision change, No Conjunctivae inflammation, No Eyelid inflammation, No Other, No Redness ENT: No Ear pain, No Ear discharge, No Nose pain, No Nose discharge, No Nose congestion, No Mouth pain, No Mouth swelling, No Throat pain, No Throat swelling, No Other Cardiovascular: Chest Pain; No Palpitations, No Orthopnea, No Paroxysmal Noc. Dyspnea, No Edema, No Lt Headedness, No Other Respiratory: No Cough, No Dry, No Shortness of breath, No SOB with excertion, No Wheezing, No Hemoptysis, No Pleuritic Pain, No Sputum, No Other Gastrointestinal: No Nausea, No Vomiting, No Abdominal Pain; Diarrhea; No Constipation, No Melena, No Hematochezia, No Other Genitourinary: No Dysuria, No Frequency, No Incontinence, No Hematuria, No Retention, No Other Musculoskeletal: No other, No neck pain, No shoulder pain, No arm pain, No back pain, No hand pain, No leg pain, No foot pain Skin: No Rash, No Lesions, No Jaundice, No Bruising, No Other Objective Vitals Vital Signs Date Time Temp Pulse Resp B/P (MAP) Pulse Ox O2 Delivery O2 Flow Rate FiO2 05/21/25 07:50 97 Room Air 05/21/25 07:50 0 21 05/21/25 05:00 97.2 85 18 147/72 (97) 97.2 Intake/Output Intake and Output 05/21/25 07:00 Intake Total 2340 ml Balance 2340 ml Intake Oral 2290 ml IV Total 50 ml # Voids 9 General Appearance: Alert, Oriented X3, Cooperative, No acute distress HEENT: Atraumatic, PERRLA Lungs: Clear to auscultation, Normal air movement Cardiovascular: Normal S1, Normal S2 Abdomen: Normal bowel sounds, Soft, No tenderness Genitourinary: No Apparent Abnormalities Musculoskeletal: Normal sensory function, Normal motor function Skin: Dry, Intact Psych/Mental Status: Mental status NL, Mood NL Medications Current Medications Medications Dose Ordered Sig/Sorin Route Start Time Stop Time Status Last Admin Dose Admin Aspirin 81 mg DAILY PO 05/20/25 10:00 05/20/25 10:35 81 MG Atorvastatin Calcium 20 mg HS PO 05/19/25 22:00 05/20/25 22:39 20 MG Hydralazine HCl 10 mg Q6HP PRN IV 05/19/25 14:45 Losartan Potassium 75 mg DAILY PO 05/20/25 10:00 05/20/25 10:34 75 MG Amlodipine Besylate 5 mg DAILY PO 05/20/25 10:00 05/20/25 10:35 5 MG Albuterol 2.5 mg Q4HPRN PRN NEB 05/19/25 14:45 05/20/25 10:56 2.5 MG Sodium Chloride 10 ml Q8HR IV 05/19/25 22:00 05/21/25 05:37 10 ML Acetaminophen/ Hydrocodone Bitart 1 tab Q4HP PRN PO 05/19/25 14:45 05/20/25 16:04 1 TAB Ondansetron HCl 4 mg Q4HP PRN IV 05/19/25 14:45 Docusate Sodium 100 mg BIDPRN PRN PO 05/19/25 14:45 Acetaminophen 650 mg Q6HP PRN PO 05/19/25 14:45 Ceftriaxone Sodium 50 ml @ 100 mls/hr DAILY@09 IV 05/20/25 09:00 05/20/25 10:36 100 MLS/HR Nitroglycerin 0.4 mg Q5MINP PRN SL 05/19/25 16:30 Morphine Sulfate 2 mg Q30M PRN IV 05/19/25 16:30 Laboratory Results Laboratory Tests 05/20/25 04:43 Coagulation Test 05/20/25 15:56 D-Dimer, Quantitative 3.66 mg/L FEU (0.0-0.49) H Urinalysis Test 05/19/25 14:40 Urine Color Yellow (Yellow) Urine Clarity Clear (Clear) Urine pH 6.0 (5.0-9.0) Urine Specific [place] 1.015 (1.001-1.035) Urine Protein Negative (Negative) Urine Ketones Negative (Negative) Urine Blood Negative /uL (Negative) Urine Nitrite Negative (Negative) Urine Bilirubin Negative (Negative) Urine Urobilinogen Normal mg/dL (Negative) Urine Leukocyte Esterase 1+ /uL (Negative) Urine RBC 1 /hpf (0 - 4) Urine Microscopic WBC 4 /HPF (0-5) Urine Squamous Epithelial Cells Few /hpf (<5) Urine Bacteria None seen /hpf (None Seen) Urine Mucus Few (None Seen) Urine Glucose Normal mg/dL (Normal) Labs and/or images reviewed: Labs reviewed by me, Image(s) reviewed by me Assessment/Plan Assessment/Plan Impression: -generalized weakness -hypothyroidism -rule out DVT/PE -abdominal pain, unspecific -back pain, unspecific Plan: -D-dimer elevated. CT angiogram of the chest negative for pulmonary emboli. -DVT study of lower extremity negative -hital hernia -DC home today Total time spent with patient discussing and formulating plan of care: 35 minutes. Plan discussed with: Patient, Other (RN) Date of Service: May 21, 2025 Billing Provider: MIKAL BARDALES NP Common Visit Codes: [id number] INP/OBS CARE(HIGH) MCKENZIE VIVAS STUDENT CHARGE OPERATOR May 21, 2025 09:20
[2025-05-21] MEDS ORDERED: IOHEXOL 350 MG/ML 100ML IJ ONE (09:29)
--- NOTE | 2025-05-21 11:37 | DVH ---
CTA Chest with intravenous contrast INDICATION: RULE OUT PE COMPARISON: XY CHEST TWO VIEWS ROUTINE on DOS: 05/19/25, CT CT ANGIO CHEST CONTRAST on DOS: 10/02/24, XY CHEST PORTABLE on DOS: 10/01/24, XY CHEST PORTABLE on DOS: 06/06/24, XY CHEST XRAY 1 VIEW on DOS: 08/14/23 TECHNIQUE: Multidetector spiral CTA of the chest was performed of the chest with intravenous contrast. PULMONARY ANGIOGRAPHY PROTOCOL was utilized using a bolus- tracking technique centered on the main pulmonary artery. Axial, coronal and sagittal multiplanar and MIP reformats were performed. Radiation Dose : 1. Chest: CTDI volume is 17.55 mGy. Dose-length product is 2.89 mGy*cm The dose indicators for CT are the volume Computed Tomography (CT) Dose Index (CTDIvol) and the Dose Length Product (DLP), and are measured in units of mGy and mGy-cm, respectively. These indicators are not patient dose, but values generated from the CT scanner acquisition factors. The report includes radiation exposure data for exposures received during this examination. Findings: Pulmonary artery: No pulmonary embolism Lower neck: Normal thyroid. Lungs: No focal consolidation, pleural effusion or pneumothorax. Heart/Vascular Structures: Cardiomegaly. Coronary artery calcifications. Vascular calcifications of the aorta. Lymph Nodes: No adenopathy Pleura: No pleural effusion or significant pneumothorax. Musculoskeletal: No acute osseous abnormality. Degenerative changes of the spine. Soft tissues: Normal. Upper abdomen: Large hiatal hernia containing large volume of ingested contents. Distended stomach. IMPRESSION: No pulmonary embolism. Large hiatal hernia containing large volume of ingested contents.
[2025-05-21] MEDS ORDERED: CEFD300C2 PO (14:41)
[2025-05-21] MEDS ORDERED: TRAM-626 PO (14:42)
--- NOTE | 2025-05-21 14:51 | DVHDS2 ---
Discharge Summary Date of Admission May 19, 2025 at 16:27 Date of Discharge: May 21, 2025 Admitting Diagnosis Generalized weakness Labs/Diagnostic Data: Laboratory Results Test 05/20/25 15:56 05/20/25 04:43 05/19/25 15:05 05/19/25 14:57 D-Dimer, Quantitative 3.66 mg/L FEU (0.0-0.49) White Blood Count 5.2 10^3/uL (4.4-10.8) Red Blood Count 4.04 10^6/uL (4.0-5.20) Hemoglobin 11.9 g/dL (12.2-16.2) Hematocrit 34.4 % (36.0-46.0) Mean Corpuscular Volume 85.2 fL (80.0-100.0) Mean Corpuscular Hemoglobin 29.4 pg (28.0-32.0) Mean Corpuscular Hemoglobin Concent 34.5 g/dL (32.0-36.0) Red Cell Distribution Width 13.1 % (11.8-14.3) Platelet Count 278 10^3/uL (140-450) Mean Platelet Volume 6.3 fL (6.9-10.8) Neutrophils (%) (Auto) 39.8 % (37.0-80.0) Lymphocytes (%) (Auto) 44.8 % (10.0-50.0) Monocytes (%) (Auto) 7.3 % (0.0-12.0) Eosinophils (%) (Auto) 7.3 % (0.0-7.0) Basophils (%) (Auto) 0.8 % (0.0-2.0) Neutrophils # (Auto) 2.1 10 ^3/uL (1.6-8.6) Lymphocytes # (Auto) 2.3 10 ^3/uL (0.4-5.4) Monocytes # (Auto) 0.4 10 ^3/uL (0-1.3) Eosinophils # (Auto) 0.4 10 ^3/uL (0-0.8) Basophils # (Auto) 0 10 ^3/uL (0-0.2) Nucleated Red Blood Cells 0.0 % Sodium Level 143 mmol/L (136-145) Potassium Level 3.6 mmol/L (3.5-5.1) Chloride Level 106 mmol/L (98-107) Carbon Dioxide Level 28 mmol/L (20-31) Anion Gap 9 (5-15) Blood Urea Nitrogen 10 mg/dL (9-23) Creatinine 0.82 mg/dL (0.550-1.02) Glomerular Filtration Rate Calc 75 mL/min (>90) BUN/Creatinine Ratio 12.2 (10.0-20.0) Serum Glucose 99 mg/dL (74-106) Calcium Level 9.2 mg/dL (8.7-10.4) Total Bilirubin 0.8 mg/dL (0.2-1.0) Aspartate Amino Transferase (AST) 22 U/L (13-40) Alanine Aminotransferase (ALT) 21 U/L (7-40) Alkaline Phosphatase 83 U/L (46-116) C-Reactive Protein High Sensitivity 0.11 mg/dL (<1.0) Total Protein 5.6 g/dL (5.7-8.2) Albumin 3.7 g/dL (3.2-4.8) Thyroid Stimulating Hormone (TSH) 5.08 uIU/mL (0.55-4.78) SARS-CoV-2 Antigen (Rapid) Negative (NEGATIVE) Troponin I High Sensitivity < 3 ng/L (</=34) Test 05/19/25 14:40 Urine Color Yellow (Yellow) Urine Clarity Clear (Clear) Urine pH 6.0 (5.0-9.0) Urine Specific [place] 1.015 (1.001-1.035) Urine Protein Negative (Negative) Urine Ketones Negative (Negative) Urine Blood Negative /uL (Negative) Urine Nitrite Negative (Negative) Urine Bilirubin Negative (Negative) Urine Urobilinogen Normal mg/dL (Negative) Urine Leukocyte Esterase 1+ /uL (Negative) Urine RBC 1 /hpf (0 - 4) Urine Microscopic WBC 4 /HPF (0-5) Urine Squamous Epithelial Cells Few /hpf (<5) Urine Bacteria None seen /hpf (None Seen) Urine Mucus Few (None Seen) Urine Glucose Normal mg/dL (Normal) Other Laboratory Tests 05/20/25 04:43 Brief Hx & Hospital Course: History of Present Illness The patient is a 75-year-old female with past medical history of CVA, anxiety, hyperlipidemia, hypothyroidism, and hypertension who presented to [facility] ED with complaint of generalized weakness. Patient reports she has been experiencing generalized weakness associated with dizziness, chest tightness, and diarrhea for the past 2 weeks. Patient was seen and evaluated in the ED, laboratory data shows WBC 8.7, platelets 306, sodium 141, potassium 4.2, BUN 10, creatinine 0.86, GFR 71, glucose 101, calcium 9.3, troponin three, blood pressure 171/93 trending down to 160/88, heart rate 73, temperature 97.6 F, O2 saturation 96% on room air. Urinalysis positive for urinary tract infection. Chest x-ray show no acute cardiopulmonary disease. Please see medication orders section in the computer. On my assessment, patient denied chest pain, no dizziness, headache, diaphoresis, shortness of breaths, no diarrhea, nausea, vomiting, fever, no chills. Patient was admitted for further evaluation and medical management. Course of hospitalization: Patient had plus one leukocytes in her urine. Patient's symptoms were vague, reported as intermittent chest pain with some upper back pain also with left lower back pain. Patient does state that she recently traveled to [facility] via airplane. Further assessment reveals that she did have some cramping to her left calf. DVT study to her left lower extremity was negative. Patient did have elevated D-dimer of 3.66. Subsequently patient had CT angiogram of the chest which was negative for any acute pathology including pulmonary embolism. Reassessment of the patient's back pain reveals that she has no guarding, with no CVA tenderness. Patient is noted to ambulate without any difficulties. She will be discharged home and instructed to follow up with her PCP in 1-2 weeks. Discharge medications include cefdinir 300 mg p.o. b.i.d. for five days, as well as Ultram 50 mg p.o. q.12 hours as needed for [id number] pain. Patient was agreeable with discharge plan. All questions answered. Physical examination General: Alert and Oriented x3. No acute distress. Well-nourished. Eyes: EOMI. Anicteric. HENT: Moist mucous membranes. Lungs: Clear to auscultation bilaterally. No accessory muscle use. Cardiovascular: Regular rate and rhythm. No murmur. No JVD. Abdomen: Soft, non-tender and non-distended. No palpable masses. Extremities: No edema. Non-tender. Skin: No rashes or lesions. Warm. Neurologic: No focal neurological deficits. CN II-XII grossly intact, but not individually tested. Psychiatric: Cooperative. Appropriate mood and affect. Total time spent with patient discussing and formulating plan of care: 35 minutes. This medical document was created using an electronic medical record system with [employer] system. Although this document has been carefully reviewed, there may still be some phonetic and typographical errors. These areas are purely typographical due to imperfections of the software programs, and do not reflect any compromise in the patient's medical care. Condition at Discharge: Fair Final Diagnosis/Problems List Back pain secondary to UTI -generalized weakness -hypothyroidism -ruled out DVT/PE -abdominal pain, unspecific Discharge Disposition: Home Discharge Instruct/Medications Diet: Cardiac 2g Na,low cholest Activity: No Restrictions, As Tolerated Follow Up/Referral: PCP in 1-2 weeks Medications: Cefdinir 300 mg p.o. b.i.d. times five days Ultram 50 mg p.o. b.i.d. as needed for back pain Scheduled Aspirin (Aspir-Low), 81 MG PO DAILY, (Reported) Atorvastatin Calcium (Atorvastatin Calcium), 1 TAB PO HS, (Reported) Cefdinir (Cefdinir), 1 CAP PO BID Citalopram Hydrobromide (Citalopram Hydrobromide), 1 TAB PO DAILY, (Reported) Citalopram Hydrobromide (Citalopram Hydrobromide), 40 MG PO DAILY, (Reported) Docusate Sodium (Colace), 1 CAP PO BID Labetalol Hcl (Labetalol Hcl), 200 MG PO BID, (Reported) Levothyroxine Sodium (Levothyroxine Sodium), 150 MCG PO QAM, (Reported) Losartan Potassium (Losartan Potassium), 100 MG PO DAILY, (Reported) Methylprednisolone (Medrol Dosepak), 4 MG PO UD Omeprazole (Gnp Omeprazole), 1 TAB PO DAILY, (Reported) Scheduled PRN Albuterol Sulfate (Ventolin Mdi), 180 MCG IN TIDPRN PRN Hydrocodone-Acetaminophen (Hydrocodone Bitartrate/AC 5-325 mg), 1 TAB PO Q6HP PRN Ibuprofen (Ibuprofen), 1 TAB PO Q6HP PRN Ipratropium [place] Hfa (Atrovent Hfa), 17 MCG IN Q6HP PRN Polyethylene Glycol 3350 (Miralax), 17 GM PO DAILY PRN Tramadol HCl (Tramadol HCl), 50 MG PO Q12HP PRN 36 Discharge Statement: "Patient was advised to return to the ER or call 911 if any headaches, dizziness, shortness of breath, chest pain, abdominal pain, bleeding, fevers, or worsening of medical condition. Patient was counseled about treatment plan, medications, possible side effects, patientverbalized understanding. All questions were answered to the best of my ability. This discharge took greater then 30 minutes in planning, reviewing documentation, counseling the patient, and discussing with other team members." ASSESSMENT ASSESSMENT Assessment Back pain secondary to UTI Date of Service: May 21, 2025 Billing Provider: MIKAL BARDALES NP Common Visit Codes: 03034-BSA/OBS DISCH DAY >30min MIKAL BARDALES NP May 21, 2025 14:51
--- NOTE | 2025-05-21 16:44 | DVHSR ---
APPROVED REPORT EXAM: Two-dimensional and M-mode echocardiogram with Doppler and color Doppler. Blood Pressure: 143/69 mmHg INDICATION R/O DVT RISK FACTORS Height: 61, Weight: 149 DIMENSIONS LVDd 4.3 (3.8-5.7cm) LA (2D) 3.8 (1.9-4.0cm) Aortic Root 3.1 (2.0-3.7cm) LVDs 2.8 (2.5-4.0cm) LA (MM) (1.9-4.0cm) Aortic Cusp Exc 1.6 (1.5-2.0cm) EF (%) 65.0 (55-70%) Rt. Atrium 4.8 (1.9-4.0cm) Asc. Aorta cm Mitral Valve Mitral Mitral Stenosis E wave 0.79m/s MV Mean GR. mmHg A wave 1.04m/s MV Peak GR. 97mmHg E/A ratio 0.8 2D MVA cm2 DECEL Time 189ms PRESS 1/2 Time ms Aortic Valve Aortic Valve Aortic Stenosis V1 0.82m/s AO Mean GR. 4mmHg V2 1.38m/s AO Peak GR. 8mmHg LVOT Diameter 1.8 (1.8-2.4cm) Doppler NAOMIE 1.51cm2 AI P 1/2 Time 437.42ms Tricuspid Valve TR Velocity 1.92m/s RVSP 20mmHg Conclusion Technically good study. Sinus rhythm. Left atrial enlargement with concentric LVH. Mild dilation of the sinuses of Valsalva. Mild mitral annular calcification of the base of the posterior mitral leaflet. Mild calcification of the non coronary cusp. Left ventricular function is preserved at 60% with normal RV function. Mild MR. [id number] aortic insufficiency. Moderate tricuspid regurgitation. No pericardial effusion masses or vegetations.
== END 2025-05-21 16:56 | disposition home or self-care (01) | DRG 74 ==
LOC: ER 13:19 → OVERFLOW 16:27 → TELE-WESTW 18:45
PROVIDERS: ADMIT Nurse Practitioner Acute Care; ATTEND Nurse Practitioner Acute Care
DX: G90.9 Disorder of the autonomic nervous system, unspecified (principal); I16.0 Hypertensive urgency; N39.0 Urinary tract infection, site not specified; E03.9 Hypothyroidism, unspecified; I10 Essential (primary) hypertension; D72.829 Elevated white blood cell count, unspecified; Z20.822 Contact with and (suspected) exposure to COVID-19; M54.50 Low back pain, unspecified; F41.9 Anxiety disorder, unspecified; E78.5 Hyperlipidemia, unspecified; Z86.73 Personal history of transient ischemic attack (TIA), and cerebral infarction without residual deficits; Z88.2 Allergy status to sulfonamides
CPT/HCPCS: 36415; 71046; 71275; 80048; 80053; 81001; 84443; 84484; 85025; 85379; 86141; 87426; 93306; 93970; 94640; 96365; G0378